=== PATIENT | male | born 1935 | race Caucasian/White ===

== ENCOUNTER → 2018-03-10 09:33 | Outpatient (CLI) | payer MEDICARE, OTHER, SELFPAY ==
--- NOTE | 2018-03-10 09:33 | XR_ITS ---
XR foot wt bearing RT 3V HISTORY: Pain, open wound ITS.REASON: wound ORDERING PHYSICIAN: Chepe Vanegas MD PATIENT AGE: 82 years COMPARISON: None FINDINGS: No fracture or dislocation. No lytic or blastic change. There is normal mineralization.. The joint spaces are well-preserved. No significant degenerative/arthritic changes. No erosive changes evident. IMPRESSION: Negative, no acute finding
--- NOTE | 2018-03-10 09:33 | XR_ITS ---
XR foot wt bearing LT 3V HISTORY: Pain, open wound ITS.REASON: wound care ORDERING PHYSICIAN: Chepe Vanegas MD PATIENT AGE: 82 years COMPARISON: None FINDINGS: No fracture or dislocation. No lytic or blastic change. There is normal mineralization.. The joint spaces are well-preserved. No significant degenerative/arthritic changes. No erosive changes evident. IMPRESSION: Negative, no acute finding
--- NOTE | 2018-03-10 09:36 | US_ITS ---
US Arterial Ankle Brachial Ind History: Ulceration of the right foot, peripheral vascular disease, rest pain with claudication ORDERING PHYSICIAN: Chepe Vanegas MD PATIENT AGE: 82 years TECHNIQUE: Segmental pressures obtained of both right and left leg. These are compared to brachial blood pressure to yield index at each level sampled including summary EMILY. The data sheets from the procedure are available in PACS FINDINGS Rest study only performed today No prior studies available for comparison. Blood pressures reported are in millimeters mercury. RIGHT LEG EMILY = 1.1. RIGHT LEG TBI=.8 Brachial BP: 138 Thigh BP: 144 Calf BP: 166 Ankle PT: 145 Ankle DP : 163 Digit =108 LEFT LEG EMILY = 1.2 LEFT LEG TBI= .8 Brachial BPD: 135 Thigh BP: 148 Calf BP: 154 Ankle PT:165 Ankle DP: 150 Digit = 114 Pulses and waveforms: Normal IMPRESSION: The ABIs and TBIs as reported above are within normal limits. Waveforms and pulses are also unremarkable.
[2018-03-10 10:35] LABS: Basophils % 0.6 % (0.1-2.0); Eosinophils # 0.1 K/mm3 (0.0-0.4); Eosinophils % 1.5 % (0.1-12.0); Hematocrit 45.2 % (42.0-52.0); Lymphocytes # 1.6 K/mm3 (0.7-4.5); Lymphocytes % 21.5 K/mm3 (10-50); Mean Corpuscular HGB Conc 30.9 g/dL (31.8-35.4); Mean Corpuscular Hemoglobin 28.1 pg (27.0-31.2); Mean Corpuscular Volume 90.9 fl (80-94); Mean Platelet Volume 6.9 fl (7.4-10.4); Monocytes # 0.4 K/mm3 (0.1-1.0); Monocytes % 5.7 % (1.7-9.3); Neutrophils # 5.4 K/mm3 (1.8-7.8); Neutrophils % 70.8 % (37.0-80.0); Platelet Count 189 K/mm3 (142-424); Red Blood Count 4.97 M/mm3 (4.60-6.20); Red Cell Distribution Width 13.7 % (11.5-17.5); White Blood Count 7.6 K/mm3 (4.8-10.8)
[2018-03-10 10:39] LABS: Alanine Aminotransferase 19 U/L (12-78); Albumin Level 3.8 gm/dL (3.4-5.0); Albumin/Globulin Ratio 1.2 (1.1-1.8); Alkaline Phosphatase 71 U/L (46-116); Anion Gap 13.2 mEq/L (5-15); Aspartate Amino Transferase 25 U/L (15-37); Bilirubin,Total 0.6 mg/dL (0.2-1.0); Blood Urea Nitrogen 15 mg/dL (7-18); Calcium 8.6 mg/dL (8.5-10.1); Carbon Dioxide 28 mmol/L (21.0-32.0); Chloride 107 mmol/L (98-107); Estimated Glomerular Filt Rate 81 ml/min (>60); GFR (African American) 98 ML/MIN (>60); Globulin 3.1 gm/dl (1.3-3.2); Glucose 102 mg/dL (74-106); Potassium 4.2 mmoL/L (3.5-5.1); Sodium 144 mmol/L (136-145); Total Protein,Serum 6.9 gm/dL (6.4-8.2)
[2018-03-10 10:51] LABS: C-Reactive Protein < 0.2 mg/L (0.0-0.9)
[2018-03-10 12:02] LABS: Erythrocyte Sedimentation Rate 10 mm/hr (0-20)
== END ==
PROVIDERS: Podiatrist; Family Provider Family Medicine; PCP Family Medicine; Visit Provider Internal Medicine
DX: L97.519 Non-pressure chronic ulcer of other part of right foot with unspecified severity; Z51.89 Encounter for other specified aftercare; I73.9 Peripheral vascular disease, unspecified
CPT/HCPCS: 36415; 73630; 80053; 85025; 85651; 86140; 93922

== ENCOUNTER → 2018-07-04 09:37 | Outpatient (CLI) | payer MEDICARE, OTHER, SELFPAY ==
[2018-07-04 10:09] LABS: INR 3.59 (0.9-1.1); Prothrombin Time 35.6 seconds (9.4-11.8)
--- NOTE | 2018-07-04 10:47 | XR_ITS ---
XR hip LT 2-3V w/pelvis HISTORY: ITS.REASON: S/P FALL, LT HIP PAIN ORDERING PHYSICIAN: Terry Pereyra PATIENT AGE: 83 years COMPARISON: None FINDINGS: No fracture or dislocation is evident. There are osteoarthritic changes of both hips on the AP view of the pelvis. Sutures are present along the mid and lower pelvic region. Metallic densities noted over the right ilium. IMPRESSION: No acute fracture. Osteoarthritis of the hips
== END ==
PROVIDERS: PCP Family Medicine; Visit Provider Family Medicine
DX: Z79.01 Long term (current) use of anticoagulants (principal); M25.552 Pain in left hip
CPT/HCPCS: 36415; 73502; 85610

== ENCOUNTER → 2018-10-25 09:57 | Outpatient (CLI) | payer MEDICARE, OTHER, SELFPAY ==
--- NOTE | 2018-10-25 10:04 | CA_ITS ---
PROCEDURE: 2-D M-mode and color Doppler study INDICATIONS FOR THE TEST: Chest pain COPD Heart Murmur Tobacco Smoking Palpitations Fatigue Syncope Edema Hypertension+Diabetes Mellitus Rheumatic Fever SOB BROCK+Obesity Hyperlipidemia+ Family History HD Additional History CAD, Aflutter, mech AV, cardiac stents PATIENT INFORMATION HEIGHT: 65 WEIGHT: 164 GENDER: Male B/P: 122/68 2-D/M-MODE INTERPRETATION: 2-D MEASUREMENTS OBSERVED VALUES IN CMS Right Ventricular Dimension (RVDd) 2.7 Interventricular Septum (Thickness)(IVsd) 1.1 Left Ventricular Internal Dimensions(LVIDd) 4.1 Left Ventricular Posterior Wall (Thickness)(LVPWd) 0.9 Aortic Root 3.0 Aortic Cusp Separation 1.3 Left Atrial Dimensions (LAD) 3.9 2D 1. Left atrium is moderately enlarged, left ventricle is normal size, mild concentric left ventricular hypertrophy, visually estimated ejection fraction 50% with no regional wall motion abnormality. 2. The right atrium and right ventricle are mildly enlarged with normal contractility. 3. There is mechanical prosthetic valve noted in the aortic position, the valve is well seated. 4. There is mechanical prosthetic valve noted in the mitral position valve is well seated. 5. The tricuspid valve is grossly normal. 6. The pulmonic valve is poorly visualized. 7. No significant pericardial effusion noted. DOPPLER INTERROGATION: 1. The aortic outflow velocities within normal range for the prosthetic valve, there is no significant aortic inflow obstruction or aortic insufficiency. 2. The maximum mitral inflow velocity recorded study 1.8 m/s across the prosthetic valve, the valve area is 2.6 cm by by pressure half time there is no mitral regurgitation. 3. There is mild tricuspid regurgitation noted, tricuspid regurgitation jet velocity is inadequate for calculation of the right ventricular systolic pressure. CONCLUSION: 1. Moderately enlarged left atrium, normal left ventricular size, mild concentric left ventricular hypertrophy, visually estimated ejection fraction 50% with no regional wall motion abnormality, diastolic parameters are inconclusive. 2. Normal functioning mechanical prosthetic valve in aortic position. 3. Normal function, clinical prosthetic valve in the mitral position. 4. No significant pericardial effusion noted.
== END ==
PROVIDERS: PCP Family Medicine; Visit Provider Urology
DX: E78.5 Hyperlipidemia, unspecified (principal); I11.9 Hypertensive heart disease without heart failure; I25.10 Atherosclerotic heart disease of native coronary artery without angina pectoris; R60.0 Localized edema; Z95.2 Presence of prosthetic heart valve
CPT/HCPCS: 93306

== ENCOUNTER → 2019-11-14 11:03 | Outpatient (CLI) | payer MEDICARE, OTHER, SELFPAY ==
--- NOTE | 2019-11-14 11:16 | XR_ITS ---
PROCEDURE: XR LUMBAR SPINE MIN 4V CLINICAL INDICATION: LOW BACK PAIN COMPARISON: No exams were available for comparison FINDINGS: There is no acute fracture or dislocation. There is degenerative disc disease L2-3 L3-4 L4-5 and greatest extent L5-S1. Short pedicles noted at L4 and L5 with likely some degree of central canal stenosis. There is osteoarthritis at both hips. Atherosclerotic calcifications are seen in the abdominal aorta. IMPRESSION: Multilevel degenerative disc disease. Dictated by: Frederick Pearson 11/14/2019 14:12 Electronically signed by Frederick Pearson in [place] 11/14/2019 14:12
== END ==
PROVIDERS: PCP Family Medicine; Visit Provider Family Medicine
DX: M54.5 Low back pain (principal)
CPT/HCPCS: 72110

== ENCOUNTER → 2020-03-12 14:18 | Outpatient (CLI) | payer MEDICARE, OTHER, SELFPAY ==
[2020-03-12 15:30] LABS: INR 3.87 (0.9-1.1); Prothrombin Time 36.5 seconds (9.4-11.8)
== END ==
PROVIDERS: Visit Provider Family Medicine
DX: Z51.81 Encounter for therapeutic drug level monitoring (principal); Z79.01 Long term (current) use of anticoagulants; Z95.2 Presence of prosthetic heart valve
CPT/HCPCS: 36415; 85610

== ENCOUNTER → 2020-04-11 11:03 | Outpatient (CLI) | payer MEDICARE, OTHER, SELFPAY ==
[2020-04-11 11:32] LABS: INR 2.72 (0.9-1.1); Prothrombin Time 26.3 seconds (9.4-11.8)
== END ==
PROVIDERS: Visit Provider Family Medicine
DX: Z95.2 Presence of prosthetic heart valve (principal); Z51.81 Encounter for therapeutic drug level monitoring; Z79.01 Long term (current) use of anticoagulants
CPT/HCPCS: 36415; 85610

== ENCOUNTER → 2020-04-22 08:06 | Outpatient (CLI) | payer MEDICARE, OTHER, SELFPAY ==
--- NOTE | 2020-04-22 08:08 | CA_ITS ---
APPROVED REPORT EXAM: Comprehensive 2D, Doppler, and color-flow Echocardiogram [employer] Rep[employer]r: Erica Dalton CRT Ht: 5 ft 5 in Wt: 166lbs BSA: 1.83 BP: 128/78 mmHg Indications: Prosthetic Valve, mech AV, mech MV Congestive Heart Failure, Atrial Fibrillation, CAD, GERD 2D Dimensions LVOT 1.76 cm (M/F) 1.5-2.5 M-Mode Dimensions RVDd 3.65 cm (0.9-2.6) LVDd 5.06 cm (3.5-5.7) LVDs 3.65 cm (3.5-5.7) IVSd 1.27 cm (0.6-1.1) PWd 0.94 cm (0.6-1.1) EF (Teich) 53.70% FS 27.90% EDV (Teich) 121.60 mL ESV (Teich) 56.30 mL LV Diastology E/A Ratio 4.91 Aortic Valve LVOT Max 187.00 (70-110 cm/s) LVOT VTI 39.75 cm Mitral Valve MV A Velocity 30.00 (40-130 cm/s) MV Mean Gr. 3.70 (<2mmHg) MV PHT 80.00 ms Left Ventricle Left atrium is mildly enlarged, left ventricle is normal size, there is mild concentric left ventricular hypertrophy, visually estimated ejection fraction 55% with no regional wall motion abnormality, diastolic parameters are inconclusive. Right Ventricle Right atrium and right ventricular mildly enlarged with normal contractility. Aortic Valve There is mechanical prosthetic valve noted in the aortic position, the valve is well-seated, the gradient across the prosthetic valve is within acceptable range, there is no aortic insufficiency. Mitral Valve There is mechanical prosthetic valve noted in the mitral position, the valve is well-seated, the mean gradient across valve is 3.5 mmHg, there is no significant mitral inflow obstruction or mitral regurgitation. Tricuspid Valve Tricuspid valve leaflets are minimally thickened, there is mild tricuspid regurgitation. Pulmonic Valve Pulmonic valve is poorly visualized. Great Vessels Aortic root is normal size. Pericardium No significant pericardial effusion noted. Conclusion 1. Biatrial enlargement, normal left ventricular size, mild concentric left ventricular hypertrophy, visually estimated ejection fraction 55% with no regional wall motion abnormality, diastolic parameters are within normal range. 2. Normal functioning mechanical prosthetic valve in the aortic position. 3. Normal functioning mechanical prosthetic valve in the mitral position. 4. Mild tricuspid regurgitation. 5. No significant pericardial effusion noted. Electronically signed by : Otoniel Orozco, 04/22/2020 19:52:25
== END ==
PROVIDERS: PCP Family Medicine; Visit Provider Internal Medicine
DX: Z95.2 Presence of prosthetic heart valve (principal); I25.10 Atherosclerotic heart disease of native coronary artery without angina pectoris
CPT/HCPCS: 93306

== ENCOUNTER → 2020-05-13 11:11 | Outpatient (CLI) | payer MEDICARE, OTHER, SELFPAY ==
[2020-05-13 11:39] LABS: Prothrombin Time 29.7 seconds (9.4-11.8)
== END ==
PROVIDERS: Visit Provider Family Medicine
DX: Z95.2 Presence of prosthetic heart valve (principal)
CPT/HCPCS: 36415; 85610

== ENCOUNTER → 2020-06-10 12:14 | Outpatient (CLI) | payer MEDICARE, OTHER, SELFPAY ==
[2020-06-10 13:39] LABS: Chloride 102 mmol/L (98-107); Potassium 4.9 mmoL/L (3.5-5.1); Sodium 140 mmol/L (136-145)
[2020-06-10 13:42] LABS: Anion Gap 12.9 mEq/L (5-15); Blood Urea Nitrogen 19 mg/dl (9-20); Carbon Dioxide 30 mmol/L (22.0-30.0); Estimated Glomerular Filt Rate 80 ml/min (>60); GFR (African American) 97 ML/MIN (>60)
[2020-06-10 13:43] LABS: Calcium 9.4 mg/dl (8.4-10.2); Glucose 97 mg/dl (74-100)
[2020-06-10 17:00] LABS: INR 2.72 (0.9-1.1); Prothrombin Time 26.9 seconds (9.4-11.8)
== END ==
PROVIDERS: Visit Provider Family Medicine
DX: E03.9 Hypothyroidism, unspecified (principal); Z95.2 Presence of prosthetic heart valve
CPT/HCPCS: 36415; 80048; 84443; 85610

== ENCOUNTER → 2020-08-08 12:38 | Outpatient (CLI) | payer MEDICARE, OTHER, SELFPAY ==
[2020-08-08 15:13] LABS: INR 3.77 (0.9-1.1); Prothrombin Time 37.1 seconds (9.4-11.8)
== END ==
PROVIDERS: Visit Provider Family Medicine
DX: Z95.2 Presence of prosthetic heart valve (principal); Z51.81 Encounter for therapeutic drug level monitoring; Z79.01 Long term (current) use of anticoagulants
CPT/HCPCS: 36415; 85610

== ENCOUNTER → 2020-10-08 12:53 | Outpatient (CLI) | payer MEDICARE, OTHER, SELFPAY ==
[2020-10-08 14:20] LABS: Chloride 105 mmol/L (98-107); Potassium 4.2 mmoL/L (3.5-5.1); Sodium 141 mmol/L (136-145)
[2020-10-08 14:23] LABS: Alanine Aminotransferase 16 U/L (12-78); Albumin Level 4.6 g/dl (3.5-5.0); Albumin/Globulin Ratio 1.4 (1.1-1.8); Alkaline Phosphatase 66 U/L (38-126); Anion Gap 12.2 mEq/L (5-15); Aspartate Amino Transferase 29 U/L (17-59); Bilirubin,Total 0.9 mg/dl (0.2-1.3); Blood Urea Nitrogen 16 mg/dl (9-20); Calcium 9.3 mg/dl (8.4-10.2); Carbon Dioxide 28 mmol/L (22.0-30.0); Estimated Glomerular Filt Rate 71 ml/min (>60); GFR (African American) 86 ML/MIN (>60); Globulin 3.2 g/dL (1.3-3.2); Glucose 104 mg/dl (74-100); Total Protein,Serum 7.8 g/dl (6.3-8.2)
[2020-10-08 14:54] LABS: Thyroid Stimulating Hormone 2.92 uIU/mL (0.465-4.68)
[2020-10-08 15:57] LABS: INR 5.47 (0.9-1.1)
== END ==
PROVIDERS: Visit Provider Family Medicine
DX: L60.8 Other nail disorders (principal); Z95.2 Presence of prosthetic heart valve; Z79.01 Long term (current) use of anticoagulants; Z51.81 Encounter for therapeutic drug level monitoring
CPT/HCPCS: 36415; 80053; 84443; 85610

== ENCOUNTER → 2020-10-11 09:31 | Outpatient (CLI) | payer MEDICARE, OTHER, SELFPAY ==
[2020-10-11 10:31] LABS: INR 2.46 (0.9-1.1); Prothrombin Time 25.2 seconds (9.4-11.8)
== END ==
PROVIDERS: Visit Provider Family Medicine
DX: Z95.2 Presence of prosthetic heart valve (principal); Z51.81 Encounter for therapeutic drug level monitoring; Z79.01 Long term (current) use of anticoagulants
CPT/HCPCS: 36415; 85610

== ENCOUNTER → 2020-12-05 10:59 | Outpatient (CLI) | payer MEDICARE, OTHER, SELFPAY ==
[2020-12-05 11:32] LABS: Basophils # 0.1 K/mm3 (0-0.2); Basophils % 0.5 % (0.1-2.0); Eosinophils # 0.2 K/mm3 (0.0-0.4); Eosinophils % 1.8 % (0.1-12.0); Hematocrit 47.8 % (42.0-52.0); Lymphocytes % 22.3 % (10-50); Mean Corpuscular HGB Conc 31.4 g/dL (31.8-35.4); Mean Corpuscular Volume 92.1 fl (80-94); Mean Platelet Volume 7.1 fl (7.4-10.4); Monocytes # 0.5 K/mm3 (0.1-1.0); Neutrophils # 6.3 K/mm3 (1.8-7.8); Neutrophils % 70.4 % (37.0-80.0); Platelet Count 207 K/mm3 (142-424); Red Blood Count 5.19 M/mm3 (4.60-6.20); Red Cell Distribution Width 13.9 % (11.5-17.5)
[2020-12-05 11:52] LABS: Chloride 106 mmol/L (98-107); Potassium 4.5 mmoL/L (3.5-5.1); Sodium 140 mmol/L (136-145)
[2020-12-05 11:54] LABS: Blood Urea Nitrogen 15 mg/dl (9-20); Estimated Glomerular Filt Rate 80 ml/min (>60); GFR (African American) 97 ML/MIN (>60)
[2020-12-05 11:55] LABS: Alanine Aminotransferase 18 U/L (12-78); Albumin Level 4.5 g/dl (3.5-5.0); Albumin/Globulin Ratio 1.4 (1.1-1.8); Alkaline Phosphatase 75 U/L (38-126); Anion Gap 11.5 mEq/L (5-15); Aspartate Amino Transferase 37 U/L (17-59); Bilirubin,Total 0.9 mg/dl (0.2-1.3); Calcium 9.3 mg/dl (8.4-10.2); Carbon Dioxide 27 mmol/L (22.0-30.0); Chol/HDL Ratio 4.1 (1-3.5); Cholesterol 126 mg/dl (140-200); Globulin 3.3 g/dL (1.3-3.2); Glucose 105 mg/dl (74-100); HDL Cholesterol 31 mg/dl (40-60); Total Protein,Serum 7.8 g/dl (6.3-8.2); Triglycerides 120 mg/dl (30-150); VLDL Cholesterol 24 mg/dL (0-40)
[2020-12-05 12:26] LABS: INR 2.27 (0.9-1.1); Prothrombin Time 25.2 seconds (9.4-11.8)
[2020-12-05 12:27] LABS: Thyroid Stimulating Hormone 1.44 uIU/mL (0.465-4.68)
== END ==
PROVIDERS: Visit Provider Family Medicine
DX: R06.00 Dyspnea, unspecified (principal); E78.5 Hyperlipidemia, unspecified; K29.70 Gastritis, unspecified, without bleeding; I25.10 Atherosclerotic heart disease of native coronary artery without angina pectoris
CPT/HCPCS: 36415; 80053; 80061; 84443; 85025; 85610

== ENCOUNTER → 2021-01-30 11:33 | Outpatient (CLI) | payer MEDICARE, OTHER, SELFPAY ==
[2021-01-30 12:46] LABS: INR 2.89 (0.9-1.1); Prothrombin Time 31.5 seconds (10.1-12.5)
[2021-01-30 13:34] LABS: Thyroid Stimulating Hormone 2.61 uIU/mL (0.465-4.68)
== END ==
PROVIDERS: Visit Provider Family Medicine
DX: K29.70 Gastritis, unspecified, without bleeding (principal); F41.9 Anxiety disorder, unspecified; Z51.81 Encounter for therapeutic drug level monitoring; Z79.01 Long term (current) use of anticoagulants
CPT/HCPCS: 36415; 84443; 85610

== ENCOUNTER → 2021-03-27 15:52 | Outpatient (CLI) | payer MEDICARE, OTHER, SELFPAY ==
[2021-03-27 17:17] LABS: Prothrombin Time 33.7 seconds (10.1-12.5)
[2021-03-27 17:37] LABS: INR 3.11 (0.9-1.1)
== END ==
PROVIDERS: Visit Provider Family Medicine
DX: K29.70 Gastritis, unspecified, without bleeding (principal)
CPT/HCPCS: 36415; 85610

== ENCOUNTER → 2021-06-26 12:19 | Outpatient (CLI) | payer MEDICARE, OTHER, SELFPAY ==
[2021-06-26 12:38] LABS: INR 2.96 (0.9-1.1); Prothrombin Time 30.1 seconds (9.2-12.1)
== END ==
PROVIDERS: Visit Provider Family Medicine
DX: I25.10 Atherosclerotic heart disease of native coronary artery without angina pectoris (principal); Z51.81 Encounter for therapeutic drug level monitoring; Z79.01 Long term (current) use of anticoagulants
CPT/HCPCS: 85610

== ENCOUNTER 2021-07-18 10:11 | Emergency (ER) | payer MEDICARE, OTHER, SELFPAY ==
[2021-07-18 11:38] VITALS: BP 165/71; PULSE 60; RESP 18; TEMP 36.7; O2SAT 97; BMI 26.2
--- NOTE | 2021-07-18 11:53 | HMH.EDUTC ---
[facility] [place] Disposition Clinical Impression: Perforation of left tympanic membrane, Bleeding from left ear Disposition: Home, Self-Care Condition on Discharge: Good Instructions: DI for Tympanic Membrane Perforation-Adult Prescriptions: Amoxicillin [Amoxicillin 875MG Tab] 875 mg PO Q12H #20 tab Transmission Status: Pending to [facility] Ciprofloxacin HCl/Dexameth [Cipro 0.3%-Dex 0.1% Otic Susp 7.5mL] 5 drops OT BID 7 Days #1 ml Transmission Status: Pending to [facility] Referrals: Dagoberto Pereyra MD [Primary Care Provider] - Time of Disposition: 12:02 Medical Decision Making - [place] Inquiry Pt receiving controlled substance: No Vital Signs: 07/18/21 11:38 Temperature 98.0 F Temperature Source Oral Pulse Rate [Right Brachial] 60 Respiratory Rate 18 Blood Pressure [Right Arm] 165/71 H Blood Pressure Mean [Right Arm] 102 Blood Pressure Source [Right Arm] Automatic Cuff Blood Pressure Position [Right Arm] Sitting 02 Sat by Pulse Oximetry 97 Oxygen Delivery Method Room Air [facility] [place] HPI - General Stated complaint: left ear bleed Time Seen by Provider: 07/18/21 11:53 Mode of Arrival: Ambulatory Source of Information: Patient Limitations: reading and writing Description of Symptoms (Recalled from Triage Doc. by RN): blood in both ears HEENT Symptoms (Recalled from RN notes): Yes Resp Symptoms (Recalled from RN notes): No Skin Symptoms (Recalled from RN notes): No MS Symptoms (Recalled from RN notes): No Functional Status (Recalled from RN notes): yes - History of Present Illness Provider Complaint: Patient states that he noticed bleeding from his left ear this morning. No pain or fever. Has had hole in his ear before. He is on blood thinners. Onset (ago): day(s) (1) Relieving factors: none Exacerbating factors: none Associated symptoms: denies other symptoms Treatments prior to arrival: none - Related Data Home Medications Medication Instructions Recorded Confirmed aspirin 81 mg tablet,delayed 81 mg PO DAILY tab 03/07/18 06/26/21 release furosemide 40 mg tablet 40 mg PO DAILY tab 03/07/18 03/27/21 levothyroxine 137 mcg tablet 137 mcg PO tab 06/26/21 06/26/21 Previous Rx's Medication Instructions Recorded ketoconazole 2 % topical cream 1 applic TOPICAL DAILY #30 g 12/05/20 warfarin 4 mg tablet 4 mg PO .every tu/thur #30 tab 01/20/21 clonazepam 1 mg tablet 1 mg PO BID #60 tab 01/30/21 tramadol 50 mg tablet 50 mg PO DAILY PRN #90 tab 01/30/21 warfarin 3 mg tablet See Rx Instructions .ROUTE 05/20/21 .COMPLEX #30 tab metoprolol tartrate 50 mg tablet 50 mg PO BID #60 tab 06/26/21 omeprazole 20 mg capsule,delayed 20 mg PO ONCE #90 cap 06/26/21 release potassium chloride 10 mEq 10 meq PO DAILY #90 tab 06/26/21 tablet,extended release simvastatin 40 mg tablet 40 mg PO QPM #90 tab 06/26/21 Amoxicillin [Amoxicillin 875MG 875 mg PO Q12H #20 tab 07/18/21 Tab] Ciprofloxacin HCl/Dexameth [Cipro 5 drops OT BID 7 Days #1 ml 07/18/21 0.3%-Dex 0.1% Otic Susp 7.5mL] Allergies Allergy/AdvReac Type Severity Reaction Status Date / Time codeine [CODEINE] Allergy Unknown Verified 07/18/21 11:38 - Worker's Comp Is this a Worker's Comp case?: No Is this an [facility] Worker's Comp?: No Is this a [place] Worker's Comp?: No [facility] History - Hepatitis A Screen Drug use history?: No High risk sexual behaviors?: No History of sexually transmitted infection?: No Currently employed?: No Childcare worker?: No Do you have indoor plumbing?: Yes Do you have electricity?: Yes Attestation statement:: This patient has been screened for Hepatitis A risk factors. Medical History: Reports:: Anxiety, Atrial Fibrillation, Congestive Heart Failure, Coronary Artery Disease, Gastroesophageal Reflux Disease(GERD), Hiatal Hernia, Hyperlipidemia, Hypertension Other Medical History: Reports: Arthritis, Hypothyroidism Other Surgeries: Yes: Angioplasty, Coronary Stent, Hernia Repair, Other Valve Replac
[2021-07-18 12:14] VITALS: BP 165/71; PULSE 60; RESP 16; TEMP 36.7
== END 2021-07-18 12:14 | disposition home or self-care (01) ==
PROVIDERS: Emergency Provider Physician Assistant; PCP Family Medicine
DX: H72.92 Unspecified perforation of tympanic membrane, left ear (principal); I48.0 Paroxysmal atrial fibrillation; E03.9 Hypothyroidism, unspecified; I10 Essential (primary) hypertension; F41.9 Anxiety disorder, unspecified; I50.9 Heart failure, unspecified; K21.9 Gastro-esophageal reflux disease without esophagitis; Z79.899 Other long term (current) drug therapy
CPT/HCPCS: G0463; 99202

== ENCOUNTER → 2021-09-23 12:27 | Outpatient (CLI) | payer MEDICARE, OTHER, SELFPAY ==
[2021-09-23 13:22] LABS: Prothrombin Time 34.1 seconds (10.1-12.5)
[2021-09-23 13:44] LABS: Basophils # 0.1 K/mm3 (0-0.2); Basophils % 1.1 % (0.1-2.0); Eosinophils # 0.1 K/mm3 (0.0-0.4); Eosinophils % 1.3 % (0.1-12.0); Hematocrit 48.1 % (42.0-52.0); Hemoglobin 15.3 g/dL (14.1-18.0); Lymphocytes # 1.9 K/mm3 (0.7-4.5); Lymphocytes % 24.4 % (10-50); Mean Corpuscular HGB Conc 31.8 g/dL (31.8-35.4); Mean Corpuscular Hemoglobin 30.1 pg (27.0-31.2); Mean Corpuscular Volume 94.6 fl (80-94); Mean Platelet Volume 7.8 fl (7.4-10.4); Monocytes # 0.5 K/mm3 (0.1-1.0); Monocytes % 6.9 % (1.7-9.3); Neutrophils # 5.1 K/mm3 (1.8-7.8); Neutrophils % 66.4 % (37.0-80.0); Platelet Count 208 K/mm3 (142-424); Red Blood Count 5.08 M/mm3 (4.60-6.20); Red Cell Distribution Width 13.8 % (11.5-17.5); White Blood Count 7.6 K/mm3 (4.8-10.8)
[2021-09-23 14:36] LABS: Alanine Aminotransferase 15 U/L (12-78); Albumin Level 4.4 g/dl (3.5-5.0); Albumin/Globulin Ratio 1.6 (1.1-1.8); Alkaline Phosphatase 58 U/L (38-126); Anion Gap 12.6 mEq/L (5-15); Aspartate Amino Transferase 36 U/L (17-59); Bilirubin,Total 0.7 mg/dl (0.2-1.3); Blood Urea Nitrogen 18 mg/dl (9-20); Calcium 8.9 mg/dl (8.4-10.2); Carbon Dioxide 28 mmol/L (22.0-30.0); Chloride 102 mmol/L (98-107); Estimated Glomerular Filt Rate 91 ml/min (>60); GFR (African American) 111 ML/MIN (>60); Globulin 2.7 g/dL (1.3-3.2); Glucose 90 mg/dl (74-100); Potassium 4.6 mmoL/L (3.5-5.1); Sodium 138 mmol/L (136-145); Total Protein,Serum 7.1 g/dl (6.3-8.2)
== END ==
PROVIDERS: Visit Provider Family Medicine
DX: E78.5 Hyperlipidemia, unspecified (principal); K29.70 Gastritis, unspecified, without bleeding
CPT/HCPCS: 36415; 80053; 85025; 85610

== ENCOUNTER → 2021-10-06 12:31 | Outpatient (CLI) | payer MEDICARE, OTHER, SELFPAY ==
--- NOTE | 2021-10-06 12:34 | CA_ITS ---
APPROVED REPORT EXAM: Comprehensive 2D, Doppler, and color-flow Echocardiogram Counter Waitress/Waiter: SARAH Hernandez, RVS Ht: 5 ft 5 in Wt: 158lbs BSA: 1.79 BP: 133/61 mmHg Indications: MVR/AVR, Afib, CAD-stents, CHF, BROCK, HTN, HLD 2D Dimensions LVDd 4.15 cm LVEF (Visual) 67.50 % LVDs 2.61 cm LA Volume 115.10 mL LVOT 2.00 cm (M/F) 1.5-2.5 LA Volume Index 64.527855 mL/m2 (M/F) 16-34 M-Mode Dimensions RVDd 3.41 cm (0.9-2.6) LA Diam 5.26 cm (1.9-4.0) LVDd 4.70 cm (3.5-5.7) Ao Diam 3.43 cm (2.0-3.7) LVDs 3.56 cm (3.5-5.7) IVSd 1.18 cm (0.6-1.1) PWd 0.95 cm (0.6-1.1) EF (Teich) 48.20% FS 24.30% EDV (Teich) 102.40 mL TAPSE 2.11 (<1.7) ESV (Teich) 53.00 mL LV Diastology E Decel Time 233.00 (160-240 msec) E/A Ratio 4.24 MED E' 8.00 (< 7 cm/sec) MED A' 3.30 cm/s E'/MED E' Ratio 22.75 (>14) LAT E' 9.30 (<10 cm/sec) LAT A' 3.80 cm/s E/LAT E' Ratio 19.57 (>14) Aortic Valve LVOT Max 78.00 (70-110 cm/s) LVOT VTI 18.95 cm AoV Peak Jose. 276.00 (50-130 cm/s) AO Peak GR. 30.60 mmHg AO Mean GR. 14.60 (<5 mmHg) AO VTI 60.49 (18-25 cm) SANDY (VTI) 0.98 (2.5-4.5 cm2) Mitral Valve MV A Velocity 43.00 (40-130 cm/s) E/A Ratio 4.24 MV Decel. Time 233.00 (160-240 ms) MV Mean Gr. 5.60 (<2mmHg) Pulmonary Valve PV Peak Velocity 78.00 (50-150 cm/s) Tricuspid Valve TR P. Velocity 329.00 cm/s RAP Estimate 10.00 mmHg RVSP 53.30 mmHg Left Ventricle Left atrium is moderately enlarged, left ventricular normal size, mild concentric left ventricular hypertrophy, visually estimated ejection fraction 55% with no regional wall motion abnormality. Diastolic parameters are inconclusive. Right Ventricle Right atrium and right ventricle are mildly enlarged with normal contractility. Aortic Valve There is a mechanical prosthetic valve noted in the aortic position, mean gradient across valve is 14 mmHg. Which is within physiological range for this type of valve. Valve area is not accurately calculated. There is no significant aortic insufficiency. Mitral Valve Mechanical prosthetic valve in the mitral position, the valve is well-seated, the mean gradient across valve is 6 mmHg, valve area was not calculated. There is no significant mitral regurgitation seen. Tricuspid Valve Tricuspid valve is grossly normal, there is mild tricuspid regurgitation, tricuspid regurgitation jet was inadequate for calculation of the right ventricular systolic pressure. Pulmonic Valve Pulmonic valve is poorly visualized. Great Vessels Aortic root is normal size. Inferior vena cava is poorly visualized. Pericardium No significant pericardial effusion noted. Conclusion 1. Biatrial enlargement, normal left ventricular size, visually estimated ejection fraction 55% with no regional wall motion abnormality. Diastolic parameters are inconclusive. 2. Mechanical prosthetic valve in the aortic and mitral position likely normal functioning prosthesis, the valve area and the pressure half-time is not acquired in this study. 3. If clinically indicated repeat study with better Doppler technique is recommended to assess the aortic and the mitral valve. 4. No significant pericardial effusion noted. Electronically signed by : Otoniel Orozco MD 10/06/2021 13:52:20
== END ==
PROVIDERS: PCP Family Medicine; Visit Provider Nurse Practitioner Family
DX: E78.5 Hyperlipidemia, unspecified (principal); I11.9 Hypertensive heart disease without heart failure; I25.10 Atherosclerotic heart disease of native coronary artery without angina pectoris; I48.92 Unspecified atrial flutter; R25.1 Tremor, unspecified; R60.0 Localized edema; Z79.01 Long term (current) use of anticoagulants; Z95.2 Presence of prosthetic heart valve; Z95.5 Presence of coronary angioplasty implant and graft
CPT/HCPCS: 93306

== ENCOUNTER → 2021-12-02 11:50 | Outpatient (CLI) | payer MEDICARE, OTHER, SELFPAY ==
[2021-12-02 12:40] LABS: Prothrombin Time 29.3 seconds (10.1-12.5)
== END ==
PROVIDERS: Visit Provider Family Medicine
DX: K29.70 Gastritis, unspecified, without bleeding (principal); Z51.81 Encounter for therapeutic drug level monitoring; Z79.01 Long term (current) use of anticoagulants
CPT/HCPCS: 36415; 85610

== ENCOUNTER → 2022-02-19 10:57 | Outpatient (CLI) | payer MEDICARE, OTHER, SELFPAY ==
[2022-02-19 11:28] LABS: INR 3.01 (0.9-1.1); Prothrombin Time 31.3 seconds (10.1-12.5)
== END ==
PROVIDERS: Visit Provider Family Medicine
DX: K29.70 Gastritis, unspecified, without bleeding (principal)
CPT/HCPCS: 36415; 85610

== ENCOUNTER → 2022-03-26 12:25 | Outpatient (CLI) | payer MEDICARE, OTHER, SELFPAY ==
[2022-03-26 13:16] LABS: INR 3.39 (0.9-1.1)
== END ==
PROVIDERS: PCP Family Medicine; Visit Provider Family Medicine
DX: K29.70 Gastritis, unspecified, without bleeding (principal); Z51.81 Encounter for therapeutic drug level monitoring; Z79.01 Long term (current) use of anticoagulants
CPT/HCPCS: 36415; 85610

== ENCOUNTER → 2022-04-15 09:08 | Outpatient (CLI) | payer MEDICARE, OTHER, SELFPAY ==
[2022-04-15 09:49] LABS: INR 2.98 (0.9-1.1); Prothrombin Time 31.1 seconds (10.1-12.5)
== END ==
PROVIDERS: PCP Family Medicine; Visit Provider Family Medicine
DX: K29.70 Gastritis, unspecified, without bleeding (principal); Z51.81 Encounter for therapeutic drug level monitoring; Z79.01 Long term (current) use of anticoagulants
CPT/HCPCS: 36415; 85610

== ENCOUNTER → 2022-05-25 09:47 | Outpatient (CLI) | payer MEDICARE, OTHER, SELFPAY ==
[2022-05-25 10:51] LABS: INR 4.78 (0.9-1.1)
[2022-05-25 15:59] LABS: Prothrombin Time 48.1 seconds (10.1-12.5)
== END ==
PROVIDERS: PCP Family Medicine; Visit Provider Family Medicine
DX: K29.70 Gastritis, unspecified, without bleeding (principal); R79.1 Abnormal coagulation profile
CPT/HCPCS: 36415; 85610

== ENCOUNTER → 2022-07-24 10:38 | Outpatient (CLI) | payer MEDICARE, OTHER, SELFPAY ==
[2022-07-24 11:17] LABS: INR 3.26 (0.9-1.1); Prothrombin Time 32.9 seconds (10.1-12.5)
== END ==
PROVIDERS: PCP Family Medicine; Visit Provider Family Medicine
DX: K29.70 Gastritis, unspecified, without bleeding (principal); Z51.81 Encounter for therapeutic drug level monitoring; Z79.01 Long term (current) use of anticoagulants
CPT/HCPCS: 36415; 85610

== ENCOUNTER 2022-08-13 13:41 | Inpatient (IN) | payer MEDICARE, OTHER, SELFPAY ==
[2022-08-13] VITALS (21 sets, daily range): BP systolic 137–176; BP diastolic 60–90; PULSE 59–84; RESP 18–20; TEMP 36.6–36.9; O2SAT 92–99; BMI 25.4; BMI 25.1
--- NOTE | 2022-08-13 13:38 | ECG_ITS ---
APPROVED REPORT Exam: Resting ECG HR:60 bpm ECG Measurements Heart Rate 60 AXES QRSd 95 QRS 2 QT 394 T -38 QTc 395 Conclusion ATRIAL FLUTTER/TACHYCARDIA ST DEVIATION AND MODERATE T-WAVE ABNORMALITY, CONSIDER INFERIOR ISCHEMIA [-0.1+ mV T-WAVE IN II/aVF] ABNORMAL ECG UNCONFIRMED REPORT Electronically signed by : Jose Manuel Cao MD 08/13/2022 21:13:57
--- NOTE | 2022-08-13 13:49 | XR_ITS ---
FINAL REPORT CLINICAL HISTORY: chest pain, stemi alert FINDINGS: Mild cardiomegaly is noted. There are multiple sternotomy wires. The mediastinum is within normal limits. There are chronic changes at the lung bases. There is scarring in the left lung base. There is no pleural effusion. There is no pneumothorax. The bony thorax is intact. IMPRESSION: No acute cardiopulmonary process. Reviewed, Interpreted and Dictated by Russel Bunch MD Transcribed by Jace Mckeon Authenticated and [facility]
--- NOTE | 2022-08-13 14:01 | ECG_ITS ---
APPROVED REPORT Exam: Resting ECG HR:55 bpm ECG Measurements Heart Rate 55 AXES QRSd 93 QRS 9 QT 418 T -3 QTc 407 Conclusion ATRIAL FLUTTER/TACHYCARDIA WITH SLOW VENTRICULAR RESPONSE MODERATE ST DEPRESSION [0.05+ mV ST DEPRESSION] ABNORMAL ECG UNCONFIRMED REPORT Electronically signed by : Jose Manuel Cao MD 08/13/2022 21:14:11
[2022-08-13 14:06] LABS: Basophils # 0.1 K/mm3 (0-0.2); Basophils % 0.8 % (0.1-2.0); Eosinophils # 0.1 K/mm3 (0.0-0.4); Eosinophils % 1.4 % (0.1-12.0); Hematocrit 43.5 % (42.0-52.0); Hemoglobin 13.8 g/dL (14.1-18.0); Lymphocytes # 1.5 K/mm3 (0.7-4.5); Lymphocytes % 21.7 % (10-50); Mean Corpuscular HGB Conc 31.6 g/dL (31.8-35.4); Mean Corpuscular Hemoglobin 29.8 pg (27.0-31.2); Mean Corpuscular Volume 94.3 fl (80-94); Mean Platelet Volume 7.4 fl (7.4-10.4); Monocytes # 0.3 K/mm3 (0.1-1.0); Monocytes % 4.4 % (1.7-9.3); Neutrophils # 4.9 K/mm3 (1.8-7.8); Neutrophils % 71.7 % (37.0-80.0); Platelet Count 178 K/mm3 (142-424); Red Blood Count 4.62 M/mm3 (4.60-6.20); White Blood Count 6.8 K/mm3 (4.8-10.8)
--- NOTE | 2022-08-13 14:07 | PC.NURSE ---
ekgs being sent to dr. valdez
--- NOTE | 2022-08-13 14:09 | PC.NURSE ---
ER spoke with dr. valdez at this time, per Dr. Valdez call stemi alert
--- NOTE | 2022-08-13 14:12 | IR_ITS ---
APPROVED REPORT Patient Location: Emergent Script Editor: SERGEY Castillo RT (R) PROCEDURES Selective coronary angiogram Drug-eluting stent deployment to the proximal and mid LAD in a contiguous manner Drug-eluting stent deployment to the proximal and mid circumflex artery in a contiguous manner INDICATION Acute anterior ST elevation myocardial infarction, Coronary artery disease Informed consent was obtained prior to the procedure. COMPLICATIONS None Estimated Blood Loss: Less than 10 mls TECHNIQUE One percent lidocaine used to anesthetize the right anterior aspect of the wrist. The right radial artery was accessed via the Seldinger technique. A 6 Stateless sheath was placed in the right radial artery. 2.5 mg of verapamil, 800 mcg of nitroglycerin, 1mg Lidocaine and 5000 U Heparin were given through the arterial sheath. The papa catheter was also used to perform selective coronary angiography. Therapeutic heparin had been administered giving an ACT out of range. A Choice PT extra-support wire was placed in the distal LAD and a 3.5 x 12 mm resolute Jam stent was deployed at 20 jessica reducing the stenosis. The wire was pulled back and then placed into the circumflex artery where a 3.5 x 38 mm resolute Naoma stent was deployed at 18 jessica. A small dissection was identified distally therefore 3.5 x 8 mm resolute Jam stent was placed distal to this stent yet still overlapping it and deployed at 14 jessica. The balloon was brought back and deployed at 18 jessica to mesh the 2 stents. There still appeared to be slow flow down the LAD therefore the wire was placed back down the LAD and a 3 mm x 38 mm resolute Naoma stent was deployed at 18 jessica reducing the stenosis. A 3.5 x 12 mm balloon from the stent was then placed back into the proximal portion of the stent deployed at 24 jessica then advanced and deployed at 20 jessica into the mid LAD to post dilate. There was haziness at the 3.5 mm proximal stent circumflex therefore 3.5 x 18 mm resolute Naoma stent was then placed proximal to the first stent in the circumflex artery still overlapping it and then deployed at 24 jessica reducing the stenosis. JEANNIE II flow was present down the LAD at the beginning of the procedure with JEANNIE-3 flow at the end of the procedure. JEANNIE-3 flow was present down the circumflex artery before and after the procedure. At the end the procedure the apparatus was removed the sheath was removed good hemostasis was achieved using TR banding patient was transferred to the postop putting in stable condition ANGIOGRAPHIC RESULTS The left main artery Short and normal The left anterior descending artery Has an undersized proximal stent which is initially patent and then has a concentric 80% stenosis. There is a long 40% stenosis followed by mid vessel 70% concentric stenosis The circumflex artery Large and dominant and has proximal 60% stenosis with additional 70 and 80% stenosis extending to a large first obtuse marginal artery The right coronary artery Nondominant yet still large and normal The OLIVEIRA ventriculogram reveals Not performed The left ventricular end-diastolic pressure Not measured IMPRESSION Anterior ST elevation myocardial infarction which had improved with JEANNIE II flow by the time the patient arrived to the [employer] from the emergency department Successful stenting of the proximal to mid LAD severe disease reduced to 0% with 2 contiguous drug-eluting stents Successful stenting of the proximal to mid circumflex artery severe disease reduced to 0% with 3 contiguous drug-eluting stents PLAN 1. Plavix 600 mg now followed by 75 mg daily 2. Continue triple therapy with Plavix 75 mg daily aspirin 81 mg daily plus Coumadin with a
--- NOTE | 2022-08-13 14:12 | HMH.EDCP ---
Discharge Plan Disposition Patient Disposition: Admitted As Inpatient Condition: Serious Chief Complaint: Chest Pain Prescriptions Prescriptions: No Action furosemide [Lasix] 40 mg tablet 40 mg PO DAILY Qty: 90 3RF tramadol 50 mg tablet 50 mg PO Q8H PRN (Reason: pain) Qty: 90 3RF losartan 50 mg tablet 50 mg PO DAILY Qty: 90 3RF clonazepam 1 mg tablet 1 mg PO BID Qty: 60 5RF warfarin 4 mg tablet 4 mg PO WEEKLY Qty: 30 2RF Rx Instructions: take one 4mg tablet once a week (Wednesday) warfarin 3 mg tablet See Rx Instructions .ROUTE .COMPLEX Qty: 60 2RF Dose Instruction: TAKE 1 TABLET BY MOUTH EVERY WEDNESDAY, WEDNESDAY, WEDNESDAY, WEDNESDAY, AND WEDNESDAY. Rx Instructions: TAKE 1 TABLET BY MOUTH EVERY WEDNESDAY, WEDNESDAY, WEDNESDAY, WEDNESDAY, AND WEDNESDAY. aspirin [Adult Low Dose Aspirin] 81 mg tablet,delayed release (DR/EC) 81 mg PO DAILY Rx Instructions: TAKE 4MG EVERY WEDNESDAY simvastatin 40 mg tablet See Rx Instructions .ROUTE .COMPLEX Qty: 90 0RF Dose Instruction: TAKE 1 TABLET BY MOUTH EVERY EVENING. Rx Instructions: TAKE 1 TABLET BY MOUTH EVERY EVENING. omeprazole 20 mg capsule,delayed release(DR/EC) See Rx Instructions .ROUTE .COMPLEX Qty: 90 0RF Dose Instruction: TAKE 1 CAPSULE BY MOUTH DAILY. Rx Instructions: TAKE 1 CAPSULE BY MOUTH DAILY. levothyroxine 137 mcg tablet See Rx Instructions .ROUTE .COMPLEX Qty: 90 0RF Dose Instruction: TAKE 1 TABLET BY MOUTH DAILY. Rx Instructions: TAKE 1 TABLET BY MOUTH DAILY. potassium chloride 10 mEq tablet,ER particles/crystals See Rx Instructions .ROUTE .COMPLEX Qty: 90 0RF Dose Instruction: TAKE 1 TABLET BY MOUTH DAILY. Rx Instructions: TAKE 1 TABLET BY MOUTH DAILY. metoprolol tartrate 50 mg tablet See Rx Instructions .ROUTE .COMPLEX Qty: 180 3RF Dose Instruction: TAKE ONE (1) TABLET BY MOUTH TWO TIMES A DAY. Rx Instructions: TAKE ONE (1) TABLET BY MOUTH TWO TIMES A DAY. nitroglycerin 0.4 mg tablet, sublingual See Rx Instructions .ROUTE .COMPLEX Qty: 25 0RF Dose Instruction: TAKE 1 TABLET SUBLINGUAL ROUTE FOR CHEST PAIN EVERY 5 MINUTES TIMES 3 DOSES, IF STILL PAIN GO TO ER. Rx Instructions: TAKE 1 TABLET SUBLINGUAL ROUTE FOR CHEST PAIN EVERY 5 MINUTES TIMES 3 DOSES, IF STILL PAIN GO TO ER. Discharge ED Provider: Mario Carranza Chest Pain HPI General Chief Complaint: Chest Pain Stated Complaint: chest pain Time Seen by Provider: 08/13/22 13:42 Mode of Arrival: EMS Source of Information: Patient Limitations: No Limitations Description of Symptoms (Recalled from ER Triage Doc. by RN): Pt reports chest tightness that began while walking into his kitchen while at home today. Pt reports he got hot and sweaty when pain/tightness began. Pt took 2 nitro pills captain fishing vessel of ems, reports nitro helped tightness some but it is still present. Pt unable to rate pain. History of Present Illness HPI narrative: Patient is a 87-year-old male with a past medical history of CAD, atrial fibrillation, mechanical valve on warfarin, hyperlipidemia, hypertension who presents with concern for chest pain. Approximately 1.5 hours prior to arrival he started to experience substernal chest pain. He says that he also got nauseous and diaphoretic during this time. He says that it started radiating up into the left side of his jaw. He denies any shortness of breath. He has been taking his warfarin that he takes for his mechanical valve. He took an 81 mg aspirin and also took 2 nitro prior to arrival. Denies any abdominal pain. He has not vomited. He says that the pain is still persistent. Related Data Home Medications Medication Instructions Recorded Confirmed aspirin 81 mg tablet,delayed 81 mg PO DAILY 04/09/22 07/24/22 release (Adult Low Dose Aspirin) Previous Rx's Medication Instructions Recorded furosemide 40 mg tablet (Lasi
[2022-08-13 14:13] LABS: Coronavirus 19, PCR Not Detected (NotDetected); Influenza A, PCR Not Detected (NotDetected); Influenza B, PCR Not Detected (NotDetected)
[2022-08-13 14:14] LABS: Chloride 103 mmol/L (98-107); Potassium 4.2 mmoL/L (3.5-5.1); Sodium 142 mmol/L (136-145)
[2022-08-13 14:16] LABS: Lipase 62 U/L (23-300)
[2022-08-13 14:17] LABS: Alanine Aminotransferase 16 U/L (12-78); Albumin Level 4.3 g/dl (3.5-5.0); Alkaline Phosphatase 62 U/L (38-126); Anion Gap 12.2 mEq/L (5-15); Aspartate Amino Transferase 30 U/L (17-59); Bilirubin,Direct 0.2 mg/dl (0.0-0.4); Bilirubin,Indirect 0.7 mg/dL (0.0-0.9); Bilirubin,Total 0.9 mg/dl (0.2-1.3); Bilirubin,Unconjugated 0.8 mg/dL (0.0-1.1); Blood Urea Nitrogen 20 mg/dl (9-20); Calcium 9.1 mg/dl (8.4-10.2); Carbon Dioxide 31 mmol/L (22.0-30.0); Creatinine Clearance Estimated 52 mL/min (50-200); Estimated Glomerular Filt Rate 106 ml/min (>60); GFR (African American) 129 ML/MIN (>60); Glucose 98 mg/dl (74-100); Total Protein,Serum 7.2 g/dl (6.3-8.2)
--- NOTE | 2022-08-13 14:17 | PC.NURSE ---
ER spoke with hospitalist dr. archuleta, household appliance mechanic aware of admission
--- NOTE | 2022-08-13 14:17 | PC.NURSE ---
pt to sleep lab technologist via stretcher on [employer] monitor, with mini cotton and mini ribeiro and monse hutton aprn
--- NOTE | 2022-08-13 14:17 | PC.NURSE ---
PT being transported to [facility] at this time
--- NOTE | 2022-08-13 14:20 | PC.NURSE ---
contacted pts son Westley on the phone at this time, states he will get ahold of family and have family come over to the hospital.
--- NOTE | 2022-08-13 14:22 | EXP.CARD.CON ---
History of Present Illness History of Present Illness Consult date: 08/13/22 Requesting physician: Mario Carranza Consult reason: chest pain Chief complaint: chest pain History of present illness: This is an 87-year-old white gentleman who presented to the emergency department complaints of chest pain. The patient reports that he was walking into his kitchen today while at home and had sudden onset of chest pressure. He states that this is in the substernal aspect of his chest. He states that he got hot and sweaty when the tightness began and he is short of breath with it. He states he kind of feels clammy as well. He denies any nausea or vomiting. The patient states that this was a severe pain when it initially started. He states that he took 2 nitroglycerin pills and called EMS. He states that the nitro glycerin did help to improve the pain but it did not resolve. The patient states that he is still currently having the chest pressure and tightness but is unable to rate the pain. He does state that it is better than it was when he was at home. He states that he had been feeling fine up until today when his chest pain/pressure occurred. He denies any fever, chills, nausea, vomiting, diarrhea, PND orthopnea. He denies any bilateral lower extremity edema. [facility] Medical History (Updated 08/13/22 @ 14:28 by Miracle Carrillo APRN) Atrial flutter Coronary arteriosclerosis Edema of lower extremity snf current use of anticoagulant therapy STEMI (ST elevation myocardial infarction) Tremor Surgical History History of mechanical aortic valve replacement History of mitral valve replacement Stented coronary artery Social History Smoking Status: Never smoker alcohol intake: never substance use type: denies use current occupational status: other Travel in the last 8 weeks: Inside the [place] Review of Systems Review of Systems Review of systems:: pertinent systems reviewed and negative unless documented below Constitutional Constitutional: Reports system reviewed and no additional complaints, except as documented Eyes Eyes: Reports system reviewed and no additional complaints, except as documented ENT Ears, Nose, Mouth, and Throat: Reports system reviewed and no additional complaints, except as documented *Cardiovascular Cardiovascular: Reports system reviewed and no additional complaints, except as documented, Reports chest pain, Reports chest pain at rest, Reports chest pain with activity, Reports diaphoresis, Reports dyspnea, Reports dyspnea on exertion and Denies radiating jaw, neck or arm pain *Respiratory Respiratory: Reports system reviewed and no additional complaints, except as documented, Reports dyspnea and Reports dyspnea on exertion *Gastrointestinal Gastrointestinal: Reports system reviewed and no additional complaints, except as documented *Genitourinary Genitourinary: Reports system reviewed and no additional complaints, except as documented *Musculoskeletal Musculoskeletal: Reports system reviewed and no additional complaints, except as documented Integumentary/Breasts Skin/Breast: Reports system reviewed and no additional complaints, except as documented *Neurologic Neurologic: Reports system reviewed and no additional complaints, except as documented Psychiatric Psychiatric: Reports system reviewed and no additional complaints, except as documented Endocrine Endocrine: Reports system reviewed and no additional complaints, except as documented Hematologic/Lymphatic Hematologic/Lymphatic: Reports system reviewed and no additional complaints, except as documented Allergic/Immunologic Allergic/Immunologic: Reports system reviewed and no additional complaints, except as documented Exam Data for Last 24 hours Vital signs and Labs for Last 24 Hours: Temp Pulse Resp BP Pulse Ox 98.1 F
[2022-08-13 14:26] LABS: NT Pro Brain Natriuretic Pep. 959 pg/mL (0-450)
[2022-08-13 14:29] LABS: Troponin I 0.02 ng/ml (0.00-0.034)
[2022-08-13 14:44] LABS: INR 2.31 (0.9-1.1); Prothrombin Time 23.8 seconds (10.1-12.5)
--- NOTE | 2022-08-13 14:44 | EXP.HP ---
History of Present Illness *Admission Date: 08/13/22 *Reason for visit:: STEMI, ACS *History of present illness: Mr Randle is an 87-year-old white gentleman who presented to the emergency department complaints of chest pain and shortness of breath. He reports the episode began after walking into his kitchen today at home. Sudden onset of chest pressure. Substernal in location, he became hot, diaphoretic, had tightness and shortness of breath. States his hands felt cold. Denied any nausea, vomiting, diarrhea, syncope. Pain classified as intense when it began. He reports taking 2 nitroglycerin pills and calling EMS. He was brought to the ER via EMS where changes were noted on EKG. STEMI alert was called and patient was taken to the [facility] for intervention. States that he had been feeling fine up until today when his chest pain/pressure occurred.? He denies any fever, chills, nausea, vomiting, diarrhea, PND orthopnea.? He denies any bilateral lower extremity edema. On evaluation after heart cath, still having some chest discomfort but not as significant as initial onset. Is alert and oriented. Left heart cath findings: Anterior ST elevation myocardial infarction which had improved with JEANNIE II flow by the time the patient arrived to the [facility] from the emergency department Successful stenting of the proximal to mid LAD severe disease reduced to 0% with 2 contiguous drug-eluting stents Successful stenting of the proximal to mid circumflex artery severe disease reduced to 0% with 3 contiguous drug-eluting stents [facility] Medical History Atrial flutter Coronary arteriosclerosis Edema of lower extremity [facility]FP current use of anticoagulant therapy STEMI (ST elevation myocardial infarction) Tremor Surgical History History of mechanical aortic valve replacement History of mitral valve replacement Stented coronary artery Social History Smoking Status: Never smoker alcohol intake: never substance use type: denies use current occupational status: other Travel in the last 8 weeks: Inside the [place] Review of Systems Review of Systems Review of systems (narrative): 14 point review of systems performed, pertinent positives and negatives as per HPI *Neurologic Neurologic: Reports system reviewed and no additional complaints, except as documented Meds Home Medications and Allergies Home Medications Medication Instructions Recorded Confirmed Type aspirin 81 mg tablet,delayed 81 mg PO DAILY HEART HEALTH 04/09/22 08/13/22 History release (Adult Low Dose Aspirin) clonazepam 1 mg tablet 1 mg PO BID Anxiety 08/13/22 08/13/22 History furosemide 40 mg tablet (Lasix) 40 mg PO DAILYP PRN Edema 08/13/22 08/13/22 History levothyroxine 137 mcg tablet 137 mcg PO DAILY THYROID 08/13/22 08/13/22 History losartan 50 mg tablet 50 mg PO DAILY Hypertension 08/13/22 08/13/22 History metoprolol tartrate 50 mg tablet 50 mg PO BID Hypertension 08/13/22 08/13/22 History nitroglycerin 0.4 mg sublingual 0.4 mg sublingual Q5MINP PRN Chest 08/13/22 08/13/22 History tablet Pain omeprazole 20 mg capsule,delayed 20 mg PO DAILY GERD 08/13/22 08/13/22 History release potassium chloride 10 mEq 10 meq PO DAILY Supplement 08/13/22 08/13/22 History tablet,extended release(part/cryst) simvastatin 40 mg tablet 40 mg PO HS Cholesterol 08/13/22 08/13/22 History tramadol 50 mg tablet 50 mg PO TIDP PRN Moderate Pain 08/13/22 08/13/22 History (Scale Score 5-6) warfarin 3 mg tablet See Rx Instructions .Route 08/13/22 History .COMPLEX AFIB warfarin 4 mg tablet 4 mg PO WEEKLY AFIB 08/13/22 History New Prescriptions to Start Prescriptions: Allergies Allergy/AdvReac Type Severity Reaction Status Date / Time codeine [CODEINE] Allergy Unknown Verified 07/24/22 09:59 Exam
[2022-08-13 15:20] LABS: CATHL Activated Clotting Time > 400 SEC (74-125)
[2022-08-13 15:21] LABS: CATHL Activated Clotting Time > 400 SEC (74-125)
[2022-08-13 19:53] LABS: Troponin I 2.14 ng/ml (0.00-0.034)
[2022-08-14] VITALS: BP 120/56; PULSE 60; PULSE 79; RESP 18; TEMP 37.1; O2SAT 93
--- NOTE | 2022-08-14 01:26 | ECG_ITS ---
APPROVED REPORT Exam: Resting ECG HR:66 bpm ECG Measurements Heart Rate 66 AXES QRSd 97 QRS 17 QT 418 T 47 QTc 431 Conclusion ATRIAL FLUTTER/TACHYCARDIA ABNORMAL RHYTHM ECG UNCONFIRMED REPORT Electronically signed by : Jose Manuel Cao MD 08/15/2022 21:17:49
[2022-08-14 04:00] VITALS: BP 119/54; PULSE 60; PULSE 65; RESP 16; TEMP 36.8; O2SAT 95
[2022-08-14 04:28] VITALS: BMI 23.3
--- NOTE | 2022-08-14 04:50 | PC.NURSE ---
pt has rested intermittently t/o shift, dressing to right radial cath site, C/D/I, telemetry has shown SA with PACs to a. warren, EKG this shift showed a flutter, HR 64-79, SBP 119-176, remains on room air with O2 sats 93-95%, has complained of some mild chest pain, nitro in place
[2022-08-14 07:10] LABS: Basophils % 0.4 % (0.1-2.0); Eosinophils # 0.1 K/mm3 (0.0-0.4); Eosinophils % 0.9 % (0.1-12.0); Hematocrit 39.8 % (42.0-52.0); Lymphocytes # 1.5 K/mm3 (0.7-4.5); Lymphocytes % 14.5 % (10-50); Mean Corpuscular HGB Conc 32.5 g/dL (31.8-35.4); Mean Corpuscular Hemoglobin 29.8 pg (27.0-31.2); Mean Corpuscular Volume 91.6 fl (80-94); Mean Platelet Volume 7.2 fl (7.4-10.4); Monocytes # 0.6 K/mm3 (0.1-1.0); Monocytes % 5.7 % (1.7-9.3); Neutrophils # 7.8 K/mm3 (1.8-7.8); Neutrophils % 78.4 % (37.0-80.0); Platelet Count 149 K/mm3 (142-424); Red Blood Count 4.35 M/mm3 (4.60-6.20); Red Cell Distribution Width 14.2 % (11.5-17.5)
--- NOTE | 2022-08-14 07:14 | P.CONPHA_ITS ---
Pharmacy Intervention Comments: Medication reconciliation completed via external fill history and patient interview. Of note, patient explains he takes warfarin 3 mg daily on Wednesday- Wednesday and 4 mg on Wednesday. -Elenita Omalley, PharmD Candidate 2022
[2022-08-14 07:24] LABS: Alanine Aminotransferase 21 U/L (12-78); Albumin Level 3.7 g/dl (3.5-5.0); Albumin/Globulin Ratio 1.4 (1.1-1.8); Alkaline Phosphatase 71 U/L (38-126); Anion Gap 12.9 mEq/L (5-15); Aspartate Amino Transferase 161 U/L (17-59); Bilirubin,Total 1.2 mg/dl (0.2-1.3); Blood Urea Nitrogen 17 mg/dl (9-20); Calcium 8.8 mg/dl (8.4-10.2); Carbon Dioxide 26 mmol/L (22.0-30.0); Chloride 103 mmol/L (98-107); Creatinine Clearance Estimated 49 mL/min (50-200); Estimated Glomerular Filt Rate 91 ml/min (>60); GFR (African American) 110 ML/MIN (>60); Globulin 2.7 g/dL (1.3-3.2); Glucose 102 mg/dl (74-100); Magnesium 1.9 mg/dl (1.6-2.3); Potassium 3.9 mmoL/L (3.5-5.1); Sodium 138 mmol/L (136-145); Total Protein,Serum 6.4 g/dl (6.3-8.2)
--- NOTE | 2022-08-14 07:52 | EXP.DC.SUM ---
General Admission date:: 08/13/22 Discharge date: 08/14/22 HPI HPI HPI: Mr Randle is an 87-year-old white gentleman who presented to the emergency department complaints of chest pain and shortness of breath. He reports the episode began after walking into his kitchen today at home. Sudden onset of chest pressure. Substernal in location, he became hot, diaphoretic, had tightness and shortness of breath. States his hands felt cold. Denied any nausea, vomiting, diarrhea, syncope. Pain classified as intense when it began. He reports taking 2 nitroglycerin pills and calling EMS. He was brought to the ER via EMS where changes were noted on EKG. STEMI alert was called and patient was taken to the [facility] for intervention. States that he had been feeling fine up until today when his chest pain/pressure occurred.? He denies any fever, chills, nausea, vomiting, diarrhea, PND orthopnea.? He denies any bilateral lower extremity edema. On evaluation after heart cath, still having some chest discomfort but not as significant as initial onset. Is alert and oriented. Left heart cath findings: Anterior ST elevation myocardial infarction which had improved with JEANNIE II flow by the time the patient arrived to the [facility] from the emergency department Successful stenting of the proximal to mid LAD severe disease reduced to 0% with 2 contiguous drug-eluting stents Successful stenting of the proximal to mid circumflex artery severe disease reduced to 0% with 3 contiguous drug-eluting stents Hospital Course Hospital Course Hospital Course: 87-year-old male who presented with ACS, significant coronary history including history of CABG 20 years ago, previous stenting, and unstable angina on presentation with EKG changes consistent with anterior DC.? Patient emergently taken to the [facility] for intervention.? Problems addressed as follows: ACS/STEMI History of CABG CAD/HLD Chronic A. fib -Status post left heart cath 08/14 with placement of 5 drug-eluting stents in total.? See report for full details. Echo obtained, preliminary results show EF of 55%. Cardiology assisted with care during admission. Plan to continue metoprolol and losartan. Continue triple therapy with Plavix, aspirin, Coumadin for the first month. We will discontinue aspirin thereafter and continue just Plavix and Coumadin. Patient established with Coumadin clinic, continue to follow as an outpatient with them. Blood pressure well controlled during hospitalization. LDL goal less than 55, controlled on simvastatin. No changes to this medication. Will need close follow-up with cardiology in the coming weeks. -Would benefit from cardiac rehab, defer this to cardiology in the outpatient setting. Medically stable for discharge home. Medication sent to patient's pharmacy. Exam Data for Last 24 hours Vital signs and Labs for Last 24 Hours: Temp Pulse Resp BP Pulse Ox 98.2 F 65 16 119/54 L 95 08/14/22 04:00 08/14/22 04:00 08/14/22 04:00 08/14/22 04:00 08/14/22 04:00 Laboratory Results - last 24 hr 08/13/22 13:50: WBC 6.8, RBC 4.62, Hgb 13.8 L, Hct 43.5, MCV 94.3 H, MCH 29.8, MCHC 31.6 L, RDW 15.0, Plt Count 178, MPV 7.4, Neut % (Auto) 71.7, Lymph % (Auto) 21.7, Ada % (Auto) 4.4, Eos % (Auto) 1.4, Baso % (Auto) 0.8, Neut # (Auto) 4.9, Lymph # (Auto) 1.5, Ada # (Auto) 0.3, Eos # (Auto) 0.1, Baso # (Auto) 0.1 08/13/22 13:50: Troponin I 0.02, NT-Pro-B Natriuret Pep 959 H, Lipase 62 08/13/22 13:50: Sodium 142, Potassium 4.2, Chloride 103, Carbon Dioxide 31 H, Anion Gap 12.2, BUN 20, Creatinine 0.70, Estimated Creat Clear 52, Estimated GFR 106, Est GFR ( Amer) 129, Glucose 98, Calcium 9.1, Total Bilirubin 0.9, Direct Bilirubin 0.2, Conjugated Bilirubin 0.0, Indirect Bilirubin 0.7, Unconjugated Bilirubin 0.8, AST 30, ALT 16, Alkaline Phosphatase 62, Total Protein 7.2, Albumin 4.3 08/13/22 13:50: SARS-CoV-2 (PCR) Not detected, Influenza A Untype (PCR) Not detected, Influenza Ty
[2022-08-14 08:00] VITALS: BP 111/53; PULSE 70; PULSE 74; RESP 20; TEMP 36.9; O2SAT 96
[2022-08-14 08:22] LABS: INR 2.28 (0.9-1.1); Prothrombin Time 23.5 seconds (10.1-12.5)
[2022-08-14 08:58] LABS: Chol/HDL Ratio 4.3 (1-3.5); Cholesterol 86 mg/dl (140-200); HDL Cholesterol 20 mg/dl (40-60); Triglycerides 77 mg/dl (30-150); VLDL Cholesterol 15 mg/dL (0-40)
[2022-08-14 09:09] LABS: Direct LDL Cholesterol 43.79 mg/dL (100-129)
--- NOTE | 2022-08-14 10:03 | EXP.CARD.PN ---
Subjective Subjective Date: 08/14/22 Time: 10:00 Principal diagnosis: STEMI Interval history: This is an 87-year-old white gentleman who presented to the emergency department with complaints of chest pain. The patient had been walking through his kitchen when he had sudden onset of substernal chest pressure that did not radiate. It was associated with diaphoresis and shortness of breath as well as clamminess. The patient took 2 nitroglycerin and called EMS. The patient states that the chest pain improved but did not resolve. When the patient got here to [facility] he was found to be having an anterior STEMI with reciprocal changes. The patient was taken to the [facility] and was found to have an anterior ST elevation myocardial infarction which improved JEANNIE II flow by the time the patient arrived to the [facility] from the ED. He had successful stenting to the mid LAD with 2 drug-eluting stents and successful stenting of the mid circumflex artery with 3 drug-eluting stents. He will remain on Plavix and aspirin for dual antiplatelet therapy. This morning he states that he had some chest pain very early this morning but it has since resolved and he feels great. He denies any shortness of breath or edema. He denies any fever, chills, nausea, vomiting, diarrhea, PND or orthopnea. Exam Data for Last 24 hours Vital signs and Labs for Last 24 Hours: Temp Pulse Resp BP Pulse Ox 98.2 F 65 16 119/54 L 95 08/14/22 04:00 08/14/22 04:00 08/14/22 04:00 08/14/22 04:00 08/14/22 04:00 Laboratory Results - last 24 hr 08/13/22 13:50: WBC 6.8, RBC 4.62, Hgb 13.8 L, Hct 43.5, MCV 94.3 H, MCH 29.8, MCHC 31.6 L, RDW 15.0, Plt Count 178, MPV 7.4, Neut % (Auto) 71.7, Lymph % (Auto) 21.7, Toole % (Auto) 4.4, Eos % (Auto) 1.4, Baso % (Auto) 0.8, Neut # (Auto) 4.9, Lymph # (Auto) 1.5, Toole # (Auto) 0.3, Eos # (Auto) 0.1, Baso # (Auto) 0.1 08/13/22 13:50: Troponin I 0.02, NT-Pro-B Natriuret Pep 959 H, Lipase 62 08/13/22 13:50: Sodium 142, Potassium 4.2, Chloride 103, Carbon Dioxide 31 H, Anion Gap 12.2, BUN 20, Creatinine 0.70, Estimated Creat Clear 52, Estimated GFR 106, Est GFR ( Amer) 129, Glucose 98, Calcium 9.1, Total Bilirubin 0.9, Direct Bilirubin 0.2, Conjugated Bilirubin 0.0, Indirect Bilirubin 0.7, Unconjugated Bilirubin 0.8, AST 30, ALT 16, Alkaline Phosphatase 62, Total Protein 7.2, Albumin 4.3 08/13/22 13:50: SARS-CoV-2 (PCR) Not detected, Influenza A Untype (PCR) Not detected, Influenza Type B (PCR) Not detected 08/13/22 13:50: PT 23.8 H, INR 2.31 H 08/13/22 15:21: Activated Clotting Time > 400 H* 08/13/22 15:47: Activated Clotting Time > 400 H* 08/13/22 19:22: Troponin I 2.14 H 08/14/22 06:45: WBC 10.0 D, RBC 4.35 L, Hgb 13.0 L, Hct 39.8 L, MCV 91.6, MCH 29.8, MCHC 32.5, RDW 14.2, Plt Count 149, MPV 7.2 L, Neut % (Auto) 78.4, Lymph % (Auto) 14.5, Toole % (Auto) 5.7, Eos % (Auto) 0.9, Baso % (Auto) 0.4, Neut # (Auto) 7.8, Lymph # (Auto) 1.5, Toole # (Auto) 0.6, Eos # (Auto) 0.1, Baso # (Auto) 0.0 08/14/22 06:45: Triglycerides 77, Cholesterol 86 L, LDL Cholesterol Direct 43.79 L, VLDL Cholesterol 15, HDL Cholesterol 20 L, Cholesterol/HDL Ratio 4.3 H 08/14/22 06:45: Sodium 138, Potassium 3.9, Chloride 103, Carbon Dioxide 26, Anion Gap 12.9, BUN 17, Creatinine 0.80, Estimated Creat Clear 49, Estimated GFR 91, Est GFR ( Amer) 110, Glucose 102 H, Calcium 8.8, Magnesium 1.9, Total Bilirubin 1.2, AST 161 H D, ALT 21 D, Alkaline Phosphatase 71, Total Protein 6.4, Albumin 3.7 D, Globulin 2.7, Albumin/Globulin Ratio 1.4 08/14/22 08:00: PT 23.5 H, INR 2.28 H I & O for Last 24 hours: Intake & Output 08/11/22 08/12/22 08/13/22 08/14/22 23:59 23:59 23:59 23:59 Intake Total 480 / 480 Output Total 200 / 200 400 / 400 Balance 280 / 280 -400 / -400 Weight 160 lb 8 oz 149 lb Constitutional Constitutional: no acute distress and average body habitus *Routine HEENT Exam Head: Present normocephalic and atraumatic ENT: Present
--- NOTE | 2022-08-14 10:19 | HMH.OTEV ---
OT Inpatient Evaluation Rehab OT IP Evaluation Start: 08/14/22 08:51 Freq: ONCE Status: Complete Protocol: Document 08/14/22 10:09 PERRY (Rec: 08/14/22 10:19 PERRY [id number]) Rehab OT IP Assessment Subjective History Mr Randle is an 87-year-old white gentleman who presented to the emergency department complaints of chest pain and shortness of breath. He reports the episode began after walking into his kitchen today at home. Sudden onset of chest pressure. Substernal in location, he became hot, diaphoretic, had tightness and shortness of breath. States his hands felt cold. Denied any nausea, vomiting, diarrhea , syncope. Pain classified as intense when it began. He reports taking 2 nitroglycerin pills and calling EMS. He was brought to the ER via EMS where changes were noted on EKG. STEMI alert was called and patient was taken to the [facility] Pilot for intervention. States that he had been feeling fine up until today when his chest pain/pressure occurred.? He denies any fever , chills, nausea, vomiting, diarrhea, PND orthopnea.? He denies any bilateral lower extremity edema. On evaluation after heart cath , still having some chest discomfort but not as significant as initial onset. Is alert and oriented. Left heart cath findings: Anterior ST elevation myocardial infarction which had improved with JEANNIE II flow by the time the patient arrived to the [facility] from the emergency department. Successful stenting of the proximal to mid LAD severe disease reduced to 0% with 2
--- NOTE | 2022-08-14 11:28 | HMH.PTEV ---
Physical Therapy Evaluation Rehab PT IP Evaluation Start: 08/14/22 08:50 Freq: ONCE Status: Active Protocol: Document 08/14/22 11:24 [email or web address] (Rec: 08/14/22 11:28 PHORNE [id number]) Subjective/History History History 87 yowm adm to [facility] for possible STEMI. He reports feeling much better at this time. He lives with spouse, has family assist avaialable, 1 step to enter the home, and has AD for home use, but rarely uses it for ambulation. Subjective Subjective Pt reports no c/o this am, agrees to ambulation. Rehab PT IP Eval Objective Appearance Patient Behavior Appropriate Patient Orientation Person,Place,Time Difficulty following instructions none Speech Pattern Clear Ambulation Patient Able to Ambulate Yes Ambulation Observation IP General Gait Pattern Observation No Deviations/Normal Ambulation Distance (feet) 150 Ambulation Assistive Device None Ambulation Ability Supervision/Stand by Balance Ability to Arise Able, uses arms to help Sitting Balance Steady, safe Standing Balance Steady, wide stance Dynamic Sitting Balance Ability Good Dynamic Standing Balance Ability Good Transfers Bed Transfer Ability Supervision/Stand by Chair Transfer Ability Supervision/Stand by Sit to Stand Bed Transfer Ability Supervision/Stand by Sit to Stand Chair Transfer Ability Supervision/Stand by ROM All Extremities PT ROM Status WFL MMT All Extremities PT MMT WFL Rehab PT IP prob,goals,plan Problems Date of Evaluation: 08/14/22 Discharge Plan PT Discharge Plan Pt currently appears to be at baseline for all mobility and has no inpatient therapy needs . May benefit from outpatient cardiac rehab if appropriate. G -code Required No Eval Complexity Eval Charge Codes 24067 - Moderate Complexity PHYSICIAN CERTIFICATION: I certify the specified therapy services for Jag Randle SR are required, authorized, and reviewed every 30 days.
[2022-08-14 12:00] VITALS: PULSE 60
--- NOTE | 2022-08-14 12:05 | HMH.PHACL ---
PHA Application Assistant Discharge Med Recruitment Advertising Manager: Jag Randle has received discharge medication counseling on the following medications: PATIENT IS CURRENTLY TAKING ASPIRIN 81 MG DAILY, LOSARTAN 50 MG DAILY, METOPROLOL 50 MG BID, AND SIMVASTATIN 40 MG HS. ADDING CLOPIDOGREL 75 MG DAILY.
--- NOTE | 2022-08-18 15:29 | CARE MANAGER ---
Spoke with patient for post-discharge phone interview, patient has no complaints at this time. Patient is aware of appointments and has medications and follow-up.
== END 2022-08-14 13:16 | disposition home or self-care (01) | DRG 248 ==
LOC: ER 14:24 → 2ND 14:28 → CATHLAB 15:20
PROVIDERS: Nurse Practitioner Family; Admitting Provider Internal Medicine Adolescent Medicine; Emergency Provider Student in an Organized Health Care Education/Training Program; Referring Provider Internal Medicine; Visit Provider Internal Medicine Adolescent Medicine
PROC: B2111ZZ Fluoroscopy of Multiple Coronary Arteries using Low Osmolar Contrast (ICD-10-PCS; principal; 2022-08-13 14:15)
DX: I21.3 ST elevation (STEMI) myocardial infarction of unspecified site (principal); I25.10 Atherosclerotic heart disease of native coronary artery without angina pectoris; I25.42 Coronary artery dissection; I48.20 Chronic atrial fibrillation, unspecified; I48.92 Unspecified atrial flutter; Z95.2 Presence of prosthetic heart valve; I11.9 Hypertensive heart disease without heart failure; Z95.1 Presence of aortocoronary bypass graft; E78.2 Mixed hyperlipidemia
CPT/HCPCS: 36415; 71045; 80048; 80053; 80061; 80076; 83690; 83735; 83880; 84484; 85025; 85347; 85610; 92928; 92941; 93005; 93306; 93454; 97162; 97165; 99152; 99153; 99285; C1725; C1769; C1874; C1876; C9600; C9606; C9803; J1644; Q9967; U0003; U0005

== ENCOUNTER → 2022-08-27 13:51 | Outpatient (CLI) | payer MEDICARE, OTHER, SELFPAY ==
[2022-08-27 15:18] LABS: INR 2.29 (0.9-1.1); Prothrombin Time 23.6 seconds (10.1-12.5)
== END ==
PROVIDERS: PCP Family Medicine; Visit Provider Family Medicine
DX: I25.10 Atherosclerotic heart disease of native coronary artery without angina pectoris (principal); Z51.81 Encounter for therapeutic drug level monitoring; Z79.01 Long term (current) use of anticoagulants
CPT/HCPCS: 36415; 85610

== ENCOUNTER → 2022-09-21 09:53 | Outpatient (CLI) | payer MEDICARE, OTHER, SELFPAY ==
[2022-09-21 10:17] LABS: INR 2.32 (0.9-1.1); Prothrombin Time 23.9 seconds (10.1-12.5)
== END ==
PROVIDERS: PCP Emergency Medicine; Visit Provider Emergency Medicine
DX: I25.110 Atherosclerotic heart disease of native coronary artery with unstable angina pectoris (principal); Z51.81 Encounter for therapeutic drug level monitoring; Z79.01 Long term (current) use of anticoagulants
CPT/HCPCS: 36415; 85610

== ENCOUNTER → 2022-12-08 09:16 | Outpatient (CLI) | payer MEDICARE, OTHER, SELFPAY ==
[2022-12-08 10:25] LABS: INR 2.08 (0.9-1.1); Prothrombin Time 21.6 seconds (10.1-12.5)
== END ==
PROVIDERS: PCP Family Medicine; Visit Provider Family Medicine
DX: I48.20 Chronic atrial fibrillation, unspecified (principal); Z51.81 Encounter for therapeutic drug level monitoring; Z79.01 Long term (current) use of anticoagulants
CPT/HCPCS: 36415; 85610

== ENCOUNTER 2023-01-24 09:14 | Emergency (ER) | payer MEDICARE, OTHER, SELFPAY ==
[2023-01-24 09:21] VITALS: BP 143/78; PULSE 64; RESP 18; O2SAT 97; BMI 27.9
--- NOTE | 2023-01-24 09:32 | EXP.UTC ---
Discharge Plan Disposition Patient Disposition: Home, Self-Care Condition: Good Prescriptions Prescriptions: New clindamycin HCl 300 mg capsule 300 mg PO TID 5 Days Qty: 15 0RF mupirocin 2 % ointment 1 applic topical TID 10 Days Qty: 22 0RF Rx Instructions: apply to area as directed No Action aspirin [Adult Low Dose Aspirin] 81 mg tablet,delayed release (DR/EC) 81 mg PO DAILY potassium chloride 10 mEq tablet,ER particles/crystals See Rx Instructions .ROUTE .COMPLEX Qty: 90 0RF Dose Instruction: TAKE 1 TABLET BY MOUTH DAILY. Rx Instructions: TAKE 1 TABLET BY MOUTH DAILY. losartan 50 mg tablet 50 mg PO DAILY furosemide [Lasix] 40 mg tablet 40 mg PO DAILYP PRN (Reason: Edema) clonazepam 1 mg tablet 1 mg PO BID warfarin 4 mg tablet 4 mg PO LAMAS warfarin 3 mg tablet 3 mg PO MOTUWETHFRSA metoprolol tartrate 50 mg tablet 50 mg PO BID nitroglycerin 0.4 mg tablet, sublingual 0.4 mg sublingual Q5MINP PRN (Reason: Chest Pain) Rx Instructions: TAKE 1 TABLET SUBLINGUAL ROUTE FOR CHEST PAIN EVERY 5 MINUTES TIMES 3 DOSES, IF STILL PAIN GO TO ER. levothyroxine 137 mcg tablet See Rx Instructions .ROUTE .COMPLEX Rx Instructions: TAKE 1 TABLET BY MOUTH DAILY. clopidogrel 75 mg tablet See Rx Instructions .ROUTE .COMPLEX Rx Instructions: TAKE 1 TABLET DAILY FOR 30 DAYS. simvastatin 40 mg tablet See Rx Instructions .ROUTE .COMPLEX Rx Instructions: TAKE 1 TABLET BY MOUTH EVERY EVENING. omeprazole 20 mg capsule,delayed release(DR/EC) See Rx Instructions .ROUTE .COMPLEX Rx Instructions: TAKE 1 CAPSULE BY MOUTH DAILY. Referrals Follow up/Referrals: Dagoberto Pereyra MD [Primary Care Provider] - See instructions Activity Restrictions/Add. Instructions Additional Instructions/Restrictions: *Start antibiotic(s) immediately and be sure to take as ordered for the FULL length of time although you may be feeling better or start to see improvement in the next 24-48 hours *Monitor closely. Outlined redness so that you can monitor easier. Follow up immediately for new or worsening symptoms including but not limited to redness, swelling, streaking from site fever or chills. *Warm compress 15 minutes 3-4 times day *Never squeeze or pop these on your own. Seek immediate medical attention next time this occurs *Monitor Temp. Tylenol every 4 hours as needed and ibuprofen every 6 hours as needed (as long as your primary care doctor has told you that it is ok to take both. For fever, aches, pain. ER if no less that 101 despite Tylenol and ibuprofen ?Follow up with your family doctor/primary care physician in the next 48-72 hours if no improvement Clinical Impressions Clinical Impression: Cellulitis and abscess of buttock Instructions Patient Instructions: DI for Cellulitis -- Adult, DI for Skin Abscess Discharge ED Provider: Jolynn Anaya [facility] HPI General Stated complaint: possible abcess on buttocks Mode of Arrival: Ambulatory Source of Information: Patient Limitations: No Limitations Time Seen by Provider: 01/24/23 09:32 Description of Symptoms (Recalled from Triage Doc. by RN): c/o sore on left cheek that he noticed this morning. History of Present Illness Provider Complaint: Patient states that this morning he went to the bathroom and when he wiped he noticed some drainage on the toilet paper and he felt back there and noticed he had a small bump like area that was sore and was worried he may have an abscess starting on his left butt cheek Related Data Home Medications Medication Instructions Recorded Confirmed aspirin 81 mg tablet,delayed 81 mg PO DAILY HEART HEALTH 04/09/22 01/24/23 release (Adult Low Dose Aspirin) clonazepam 1 mg tablet 1 mg PO BID Anxiety 08/13/22 01/24/23 furosemide 40 mg tablet (Lasix) 40 mg PO DAILYP PRN Edema 08/13/22 12/08/22 losartan 50 mg tablet 50 mg PO DAILY Hype
[2023-01-24 09:33] VITALS: BP 143/78; PULSE 64; RESP 18; O2SAT 97; BMI 28.0
[2023-01-24 10:05] VITALS: BP 143/78; PULSE 64; RESP 18; TEMP 36.8; O2SAT 97
== END 2023-01-24 10:05 | disposition home or self-care (01) ==
PROVIDERS: Emergency Provider Nurse Practitioner; PCP Family Medicine
DX: L02.31 Cutaneous abscess of buttock (principal); L03.317 Cellulitis of buttock; I10 Essential (primary) hypertension
CPT/HCPCS: 99212; 99214; G0463

== ENCOUNTER 2023-01-27 10:04 | Emergency (ER) | payer MEDICARE, OTHER, SELFPAY ==
[2023-01-27 10:04] VITALS: BP 171/82; PULSE 81; RESP 18; TEMP 36.6; O2SAT 96; BMI 26.2
--- NOTE | 2023-01-27 10:05 | ECG_ITS ---
APPROVED REPORT Exam: Resting ECG HR:80 bpm ECG Measurements Heart Rate 80 AXES QRSd 98 QRS -1 QT 372 T 49 QTc 408 Conclusion ATRIAL FLUTTER/TACHYCARDIA ABNORMAL RHYTHM ECG UNCONFIRMED REPORT Electronically signed by : Jose Manuel Cao MD 01/27/2023 21:18:25
--- NOTE | 2023-01-27 10:07 | PC.NURSE ---
Dr. Lopez at BS for pt eval
--- NOTE | 2023-01-27 10:09 | CT_ITS ---
FINAL REPORT TECHNIQUE: Postcontrast axial images through the abdomen and pelvis were performed. This study was performed with techniques to keep radiation doses as low as reasonably achievable, (ALARA). Individualized dose reduction techniques using automated exposure control or adjustment of mA and/or kV according to the patient's size were employed. CLINICAL HISTORY: epigastric abdominal pain FINDINGS: Abdomen: There is bibasilar scarring. The liver parenchyma is homogeneous. The gallbladder is incompletely distended with small stones. The spleen is unremarkable. The adrenals are normal. The pancreas is unremarkable. The kidneys enhance appropriately. The aorta is normal in caliber. No free fluid or adenopathy is identified. No findings for mechanical bowel obstruction are identified. Pelvis: The appendix is not identified. The prostate is moderately enlarged. The urinary bladder is unremarkable. No free fluid, free air, abscess or adenopathy is identified. IMPRESSION: No definite acute inflammatory reaction. Distended gallbladder with small stones. Reviewed, Interpreted and Dictated by Russel Bunch MD Transcribed by Iwona Guillen Authenticated and [facility]
--- NOTE | 2023-01-27 10:09 | XR_ITS ---
FINAL REPORT CLINICAL HISTORY: Shortness of breath COMPARISON: 08/13/2022 FINDINGS: There is mild cardiomegaly. Sternotomy wires are present. There is blunting of the left costophrenic angle probably due to pleural and parenchymal scarring. There is no focal infiltrate or edema. There is no pneumothorax. There is no osseous abnormality. IMPRESSION: Blunting of left costophrenic angle, probably due to pleural and parenchymal scarring. Reviewed, Interpreted and Dictated by Russel Bunch MD Transcribed by Dominique Perea Authenticated and . [facility]
[2023-01-27 10:22] LABS: Basophils # 0.1 K/mm3 (0-0.2); Basophils % 0.5 % (0.1-2.0); Eosinophils # 0.2 K/mm3 (0.0-0.4); Eosinophils % 2.1 % (0.1-12.0); Hematocrit 45.3 % (42.0-52.0); Hemoglobin 14.6 g/dL (14.1-18.0); Lymphocytes # 1.5 K/mm3 (0.7-4.5); Lymphocytes % 14.8 % (10-50); Mean Corpuscular HGB Conc 32.2 g/dL (31.8-35.4); Mean Corpuscular Hemoglobin 29.6 pg (27.0-31.2); Mean Corpuscular Volume 91.7 fl (80-94); Mean Platelet Volume 8.1 fl (7.4-10.4); Monocytes # 0.5 K/mm3 (0.1-1.0); Neutrophils # 7.8 K/mm3 (1.8-7.8); Neutrophils % 77.5 % (37.0-80.0); Platelet Count 195 K/mm3 (142-424); Red Blood Count 4.93 M/mm3 (4.60-6.20); Red Cell Distribution Width 14.6 % (11.5-17.5); White Blood Count 10.1 K/mm3 (4.8-10.8)
--- NOTE | 2023-01-27 10:25 | HMH.EDGENADL ---
Discharge Plan Disposition Patient Disposition: Home, Self-Care Prescriptions Prescriptions: New famotidine [Pepcid AC Maximum Strength] 20 mg tablet 20 mg PO BID 42 Days Qty: 84 0RF No Action aspirin [Adult Low Dose Aspirin] 81 mg tablet,delayed release (DR/EC) 81 mg PO DAILY potassium chloride 10 mEq tablet,ER particles/crystals See Rx Instructions .ROUTE .COMPLEX Qty: 90 0RF Dose Instruction: TAKE 1 TABLET BY MOUTH DAILY. Rx Instructions: TAKE 1 TABLET BY MOUTH DAILY. losartan 50 mg tablet 50 mg PO DAILY furosemide [Lasix] 40 mg tablet 40 mg PO DAILYP PRN (Reason: Edema) clonazepam 1 mg tablet 1 mg PO BID warfarin 4 mg tablet 4 mg PO LAMAS warfarin 3 mg tablet 3 mg PO MOTUWETHFRSA metoprolol tartrate 50 mg tablet 50 mg PO BID nitroglycerin 0.4 mg tablet, sublingual 0.4 mg sublingual Q5MINP PRN (Reason: Chest Pain) Rx Instructions: TAKE 1 TABLET SUBLINGUAL ROUTE FOR CHEST PAIN EVERY 5 MINUTES TIMES 3 DOSES, IF STILL PAIN GO TO ER. levothyroxine 137 mcg tablet See Rx Instructions .ROUTE .COMPLEX Rx Instructions: TAKE 1 TABLET BY MOUTH DAILY. clopidogrel 75 mg tablet See Rx Instructions .ROUTE .COMPLEX Rx Instructions: TAKE 1 TABLET DAILY FOR 30 DAYS. simvastatin 40 mg tablet See Rx Instructions .ROUTE .COMPLEX Rx Instructions: TAKE 1 TABLET BY MOUTH EVERY EVENING. omeprazole 20 mg capsule,delayed release(DR/EC) See Rx Instructions .ROUTE .COMPLEX Rx Instructions: TAKE 1 CAPSULE BY MOUTH DAILY. clindamycin HCl 300 mg capsule 300 mg PO TID 5 Days Qty: 15 0RF mupirocin 2 % ointment 1 applic topical TID 10 Days Qty: 22 0RF Rx Instructions: apply to area as directed Referrals Follow up/Referrals: Dagoberto Pereyra MD [Primary Care Provider] - See instructions Activity Restrictions/Add. Instructions Additional Instructions/Restrictions: Follow-up with primary care physician within the next few days. Recommend follow-up with gastroenterology as well within the next few weeks for reassessment and potential discussion for endoscopy Clinical Impressions Clinical Impression: Gastritis Discharge ED Provider: Norm Lopez General Adult HPI General Chief complaint: Chest Pain Stated complaint: CP Time Seen by Provider: 01/27/23 10:05 History of Present Illness HPI narrative: 87-year-old male with history of coronary disease atrial flutter hypertension presents with chest and abdominal pain for 1 week. He says the pain is in the epigastric region worse with eating. No nausea associated. Pain is constant radiating to upper chest and lower abdomen. He has mild distention as well. The pain did get worse when he was exerting himself outside yesterday. No fever or chills. No cough. No dysuria or hematuria. Related Data Home Medications Medication Instructions Recorded Confirmed aspirin 81 mg tablet,delayed 81 mg PO DAILY HEART HEALTH 04/09/22 01/27/23 release (Adult Low Dose Aspirin) clonazepam 1 mg tablet 1 mg PO BID Anxiety 08/13/22 01/27/23 furosemide 40 mg tablet (Lasix) 40 mg PO DAILYP PRN Edema 08/13/22 01/27/23 losartan 50 mg tablet 50 mg PO DAILY Hypertension 08/13/22 01/27/23 metoprolol tartrate 50 mg tablet 50 mg PO BID Hypertension 08/13/22 01/27/23 nitroglycerin 0.4 mg sublingual 0.4 mg sublingual Q5MINP PRN Chest 08/13/22 01/27/23 tablet Pain warfarin 3 mg tablet 3 mg PO MOTUWETHFRSA AFIB 08/13/22 01/27/23 warfarin 4 mg tablet 4 mg PO LAMAS AFIB 08/13/22 01/27/23 clopidogrel 75 mg tablet See Rx Instructions .Route 01/24/23 01/27/23 .COMPLEX . levothyroxine 137 mcg tablet See Rx Instructions .Route 01/24/23 01/27/23 .COMPLEX . omeprazole 20 mg capsule,delayed See Rx Instructions .Route 01/24/23 01/27/23 release .COMPLEX . simvastatin 40 mg tablet See Rx Instructions .Route 01/24/23 01/27/23 .COMPLEX . Previous Rx's Medication Instruc
--- NOTE | 2023-01-27 10:25 | PC.NURSE ---
XR AT BEDSIDE
[2023-01-27 10:29] LABS: INR 2.62 (0.9-1.1); Prothrombin Time 26.8 seconds (10.1-12.5)
[2023-01-27 10:31] VITALS: BP 145/68; PULSE 72; O2SAT 97
[2023-01-27 10:39] LABS: Chloride 101 mmol/L (98-107); Potassium 4.8 mmoL/L (3.5-5.1); Sodium 138 mmol/L (136-145)
[2023-01-27 10:41] LABS: Alanine Aminotransferase 22 U/L (12-78); Alkaline Phosphatase 45 U/L (38-126); Aspartate Amino Transferase 50 U/L (17-59); Bilirubin,Total 1.7 mg/dl (0.2-1.3); Blood Urea Nitrogen 18 mg/dl (9-20); Creatinine Clearance Estimated 52 mL/min (50-200); Estimated Glomerular Filt Rate 80 ml/min (>60); GFR (African American) 96 ML/MIN (>60); Lipase 80 U/L (23-300)
[2023-01-27 10:42] LABS: Albumin Level 4.5 g/dl (3.5-5.0); Albumin/Globulin Ratio 1.6 (1.1-1.8); Anion Gap 16.8 mEq/L (5-15); Calcium 8.4 mg/dl (8.4-10.2); Carbon Dioxide 25 mmol/L (22.0-30.0); Globulin 2.9 g/dL (1.3-3.2); Glucose 107 mg/dl (74-100); Total Protein,Serum 7.4 g/dl (6.3-8.2)
[2023-01-27 10:44] LABS: NT Pro Brain Natriuretic Pep. 767 pg/mL (0-450)
[2023-01-27 10:46] LABS: Troponin I 0.03 ng/ml (0.00-0.034)
--- NOTE | 2023-01-27 10:50 | PC.NURSE ---
pt to ct
--- NOTE | 2023-01-27 11:08 | PC.NURSE ---
PT RETURNED FROM CT
--- NOTE | 2023-01-27 11:11 | PC.NURSE ---
Pt from radiology
[2023-01-27 11:30] VITALS: BP 144/65; PULSE 59; O2SAT 94
--- NOTE | 2023-01-27 11:30 | PC.NURSE ---
ROUNDED ON PT, WARM BLANKET PROVIDED. REPORTS GI COCKTAIL RESOLVED CHEST PAIN
--- NOTE | 2023-01-27 11:46 | PC.NURSE ---
rounded on pt adjusted bed so pt could relax and turn light off, call light at bs
[2023-01-27 12:00] VITALS: BP 133/61; PULSE 62; O2SAT 95
--- NOTE | 2023-01-27 12:17 | PC.NURSE ---
DR HEWITT AT BEDSIDE TO UPDATE PT ON POC
[2023-01-27 12:27] VITALS: BP 133/61; PULSE 73; RESP 18; TEMP 36.6; O2SAT 96
--- NOTE | 2023-01-28 09:34 | PC.NURSE ---
follow up call, Pt states that his stomach is more sore but that is nothing we did, it was sore when he came up here. States he has a fu with on the . No further needs at this time.
== END 2023-01-27 12:29 | disposition home or self-care (01) ==
PROVIDERS: Emergency Provider Emergency Medicine; PCP Family Medicine
DX: R07.9 Chest pain, unspecified (principal); K29.00 Acute gastritis without bleeding
CPT/HCPCS: 71045; 74177; 80053; 83690; 83880; 84484; 85025; 85610; 93005; 96374; 99285; J2405; Q9967

== ENCOUNTER → 2023-07-06 08:26 | Outpatient (CLI) | payer MEDICARE, OTHER, SELFPAY ==
[2023-07-06 19:06] LABS: Coronavirus 19, PCR Not Detected (NotDetected); Influenza A, PCR Not Detected (NotDetected); Influenza B, PCR Not Detected (NotDetected)
[2023-07-06 20:00] LABS: Basophils # 0.1 K/mm3 (0-0.2); Basophils % 0.4 % (0.1-2.0); Eosinophils # 0.1 K/mm3 (0.0-0.4); Eosinophils % 0.7 % (0.1-12.0); Hematocrit 48.1 % (42.0-52.0); Hemoglobin 16.2 g/dL (14.1-18.0); Lymphocytes # 2.2 K/mm3 (0.7-4.5); Lymphocytes % 15.7 % (10-50); Mean Corpuscular HGB Conc 33.7 g/dL (31.8-35.4); Mean Corpuscular Hemoglobin 31.3 pg (27.0-31.2); Mean Corpuscular Volume 92.8 fl (80-94); Mean Platelet Volume 7.8 fl (7.4-10.4); Monocytes # 0.9 K/mm3 (0.1-1.0); Monocytes % 6.1 % (1.7-9.3); Neutrophils # 10.8 K/mm3 (1.8-7.8); Neutrophils % 77.1 % (37.0-80.0); Platelet Count 196 K/mm3 (142-424); Red Blood Count 5.18 M/mm3 (4.60-6.20); Red Cell Distribution Width 14.2 % (11.5-17.5)
== END ==
PROVIDERS: PCP Nurse Practitioner; Visit Provider Nurse Practitioner
DX: J06.9 Acute upper respiratory infection, unspecified (principal); R05.9 Cough, unspecified
CPT/HCPCS: 85025; 87636

== ENCOUNTER → 2023-07-07 13:10 | Outpatient (CLI) | payer MEDICARE, OTHER, SELFPAY ==
--- NOTE | 2023-07-07 13:14 | XR_ITS ---
FINAL REPORT CLINICAL HISTORY: pneumonia, cough, wheeze, coughing up blood since a fall yesterday COMPARISON: 01/27/2023 FINDINGS: TWO-VIEW CHEST There is cardiomegaly. The patient is status post median sternotomy. There is mild bibasilar atelectasis with small left effusion. There is no pneumothorax. IMPRESSION: Bibasilar atelectasis with small left effusion. Reviewed, Interpreted and Dictated by Ronnie Khan III, MD Transcribed by Iwona Guillen Authenticated and [facility]
== END ==
PROVIDERS: PCP Family Medicine; Visit Provider Nurse Practitioner
DX: J18.9 Pneumonia, unspecified organism (principal)
CPT/HCPCS: 71046

== ENCOUNTER → 2023-07-21 10:11 | Outpatient (CLI) | payer MEDICARE, OTHER, SELFPAY ==
[2023-07-21 10:37] LABS: Basophils # 0.1 K/mm3 (0-0.2); Basophils % 0.4 % (0.1-2.0); Eosinophils # 0.1 K/mm3 (0.0-0.4); Eosinophils % 0.4 % (0.1-12.0); Hematocrit 42.2 % (42.0-52.0); Hemoglobin 14.3 g/dL (14.1-18.0); Lymphocytes % 10.8 % (10-50); Mean Corpuscular Hemoglobin 31.2 pg (27.0-31.2); Mean Corpuscular Volume 91.7 fl (80-94); Mean Platelet Volume 7.5 fl (7.4-10.4); Monocytes # 0.8 K/mm3 (0.1-1.0); Monocytes % 4.1 % (1.7-9.3); Neutrophils # 15.9 K/mm3 (1.8-7.8); Neutrophils % 84.3 % (37.0-80.0); Platelet Count 273 K/mm3 (142-424); Red Cell Distribution Width 13.9 % (11.5-17.5); White Blood Count 18.9 K/mm3 (4.8-10.8)
[2023-07-21 10:42] LABS: MANUAL DIFFERENTIAL MANUAL DIFFERENTIAL (MANUAL DIFF)
[2023-07-21 10:53] LABS: INR 3.29 (0.9-1.1); Prothrombin Time 32.9 seconds (10.1-12.5)
[2023-07-21 10:56] LABS: Lymphocytes % 10 % (10-50); Monocytes % 9 % (2-9); Neutrophils % 81 % (42-76); Platelet Estimate Normal; RBC Morphology Normal; Total Cells Counted 100
[2023-07-21 11:24] LABS: Alanine Aminotransferase 21 U/L (12-78); Albumin Level 4.2 g/dl (3.5-5.0); Albumin/Globulin Ratio 1.4 (1.1-1.8); Alkaline Phosphatase 68 U/L (38-126); Anion Gap 14.1 mEq/L (5-15); Aspartate Amino Transferase 37 U/L (17-59); Bilirubin,Total 1.1 mg/dl (0.2-1.3); Blood Urea Nitrogen 20 mg/dl (9-20); Calcium 8.5 mg/dl (8.4-10.2); Carbon Dioxide 25 mmol/L (22.0-30.0); Chloride 103 mmol/L (98-107); Estimated Glomerular Filt Rate 79 ml/min (>60); GFR (African American) 96 ML/MIN (>60); Globulin 3.1 g/dL (1.3-3.2); Glucose 108 mg/dl (74-100); Lipase 40 U/L (23-300); Potassium 4.1 mmoL/L (3.5-5.1); Sodium 138 mmol/L (136-145); Total Protein,Serum 7.3 g/dl (6.3-8.2)
== END ==
PROVIDERS: PCP Family Medicine; Visit Provider Emergency Medicine
DX: I48.91 Unspecified atrial fibrillation (principal); R09.89 Other specified symptoms and signs involving the circulatory and respiratory systems; E87.6 Hypokalemia; I25.10 Atherosclerotic heart disease of native coronary artery without angina pectoris
CPT/HCPCS: 36415; 80053; 83690; 85007; 85025; 85610

== ENCOUNTER 2023-07-21 17:29 | Observation (INO) | payer MEDICARE, OTHER, SELFPAY ==
[2023-07-21 17:30] VITALS: BP 136/57; PULSE 84; RESP 16; TEMP 36.8; O2SAT 93; BMI 26.6
--- NOTE | 2023-07-21 17:34 | XR_ITS ---
PROCEDURE INFORMATION: Exam: XR Chest Exam date and time: 07/21/2023 5:53 PM Age: 88 years old Clinical indication: Shortness of breath; Additional info: Leukocytosuis, SOA TECHNIQUE: Imaging protocol: Radiologic exam of the chest. Views: 1 view. COMPARISON: CR XR CHEST 2V 07/07/2023 1:15 PM FINDINGS: Lungs: Right lower lobe opacities. Strandy bibasilar densities likely representing atelectasis and/or scarring. Pleural spaces: No large pleural effusion. No pneumothorax. Heart/Mediastinum: Calcified atherosclerotic changes of the thoracic aorta. Cardiomegaly. Postsurgical changes of CABG. Bones/joints: Median sternotomy. IMPRESSION: Right lower lobe opacities suspicious for pneumonia in the acute setting.
[2023-07-21 18:20] LABS: Basophils # 0.1 K/mm3 (0-0.2); Basophils % 0.4 % (0.1-2.0); Chloride 105 mmol/L (98-107); Eosinophils # 0.1 K/mm3 (0.0-0.4); Hematocrit 40.7 % (42.0-52.0); Hemoglobin 13.8 g/dL (14.1-18.0); Lymphocytes # 2.3 K/mm3 (0.7-4.5); Lymphocytes % 17.3 % (10-50); Mean Corpuscular Hemoglobin 31.1 pg (27.0-31.2); Mean Corpuscular Volume 91.5 fl (80-94); Mean Platelet Volume 7.5 fl (7.4-10.4); Monocytes # 0.6 K/mm3 (0.1-1.0); Monocytes % 4.5 % (1.7-9.3); Neutrophils # 9.9 K/mm3 (1.8-7.8); Neutrophils % 76.7 % (37.0-80.0); Platelet Count 258 K/mm3 (142-424); Potassium 3.8 mmoL/L (3.5-5.1); Red Blood Count 4.45 M/mm3 (4.60-6.20); Sodium 138 mmol/L (136-145)
[2023-07-21 18:23] LABS: Alanine Aminotransferase 21 U/L (12-78); Albumin Level 4.2 g/dl (3.5-5.0); Albumin/Globulin Ratio 1.2 (1.1-1.8); Alkaline Phosphatase 72 U/L (38-126); Anion Gap 12.8 mEq/L (5-15); Aspartate Amino Transferase 38 U/L (17-59); Bilirubin,Total 1.1 mg/dl (0.2-1.3); Blood Urea Nitrogen 22 mg/dl (9-20); Carbon Dioxide 24 mmol/L (22.0-30.0); Creatinine Clearance Estimated 51 mL/min (50-200); Estimated Glomerular Filt Rate 79 ml/min (>60); GFR (African American) 96 ML/MIN (>60); Globulin 3.5 g/dL (1.3-3.2); Total Protein,Serum 7.7 g/dl (6.3-8.2)
[2023-07-21 18:24] LABS: Calcium 8.5 mg/dl (8.4-10.2); Glucose 111 mg/dl (74-100)
[2023-07-21 18:30] LABS: INR 2.97 (0.9-1.1); Prothrombin Time 29.9 seconds (10.1-12.5)
--- NOTE | 2023-07-21 18:30 | HMH.EDGENADL ---
Discharge Plan Disposition Patient Disposition: Admitted Clinical Impressions Clinical Impression: Pneumonia Discharge ED Provider: Dontae Cohn General Adult HPI General Chief complaint: Shortness of Breath/Dyspnea Stated complaint: possible infection in blood Time Seen by Provider: 07/21/23 17:32 Mode of Arrival: Ambulatory Source of Information: Patient Limitations: No Limitations Description of Symptoms (Recalled from ER Triage Doc. by RN): pt presents to ED from pcp office for further eval. pt reports cough, coughing up blood, shortness of air. pt reports symptoms ongoing for the past 3 weeks. 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 Patient states that he was seen manage today and told that I have an infection in my blood that is very high. Was told to come immediately to the ER. Patient states that for the past 3 to 4 weeks he has been coughing which has been getting progressively worse. Initially productive of green sputum, now productive of dark red sputum. Denies nausea or vomiting, fevers or chills. Patient does not have abdominal pain, dysuria, hematuria, diarrhea or constipation. Related Data Home Medications Medication Instructions Recorded Confirmed aspirin 81 mg tablet,delayed 81 mg PO DAILY HEART HEALTH 04/09/22 07/21/23 release (Adult Low Dose Aspirin) furosemide 40 mg tablet (Lasix) 40 mg PO DAILYP PRN Edema 08/13/22 07/21/23 levothyroxine 137 mcg tablet See Rx Instructions .Route 01/24/23 07/21/23 .COMPLEX . simvastatin 40 mg tablet See Rx Instructions .Route 01/24/23 07/21/23 .COMPLEX . Previous Rx's Medication Instructions Recorded clopidogrel 75 mg tablet See Rx Instructions .Route 04/01/23 .COMPLEX . #90 tabs losartan 50 mg tablet 50 mg PO DAILY Hypertension #90 04/01/23 tabs omeprazole 20 mg capsule,delayed See Rx Instructions .Route 04/01/23 release .COMPLEX . #90 caps warfarin 3 mg tablet 3 mg PO MOTUWETHFRSA AFIB #60 tabs 04/01/23 metoprolol tartrate 50 mg tablet 50 mg PO BID Hypertension #180 tabs 06/02/23 potassium chloride 10 mEq 10 meq PO DAILY #30 caps 06/08/23 capsule,extended release clonazepam 1 mg tablet 1 mg PO BID Anxiety #60 tabs 07/01/23 albuterol sulfate 90 mcg/actuation 2 puff inhalation Q4-6H PRN 07/06/23 aerosol inhaler shortness of breath or wheezing #8.5 grams ondansetron HCl 4 mg tablet 4 mg PO Q8H PRN nausea and 07/21/23 vomiting #20 tabs Allergies Allergy/AdvReac Type Severity Reaction Status Date / Time codeine [CODEINE] Allergy Unknown Verified 07/21/23 08:59 [facility] Disclaimer: The information contained in this section may have been updated after the patient was seen, as this information can be updated by other users. Medical History Atrial flutter Bronchitis Coronary arteriosclerosis Dizziness Edema of lower extremity [place] current use of anticoagulant therapy STEMI (ST elevation myocardial infarction) Tremor Surgical History History of mechanical aortic valve replacement History of mitral valve replacement Stented coronary artery Family History Other No significant family history Social History (Updated 07/21/23 @ 20:28 by Rupinder Asencio RN) Smoking Status: Never smoker alcohol intake: never substance use type: denies use current occupational status: other Travel in the last 8 weeks: Inside the [facility] ROS Obtained: Yes All systems reviewed & no additional complaints except as documented Physical Exam General General appearance: alert and in no apparent distress
--- NOTE | 2023-07-21 19:14 | PC.NURSE ---
OBSERVATION ADMISSION TO 200 WITH DX OF PNA TO SERVICE OF HOSPITALIST.
[2023-07-21 19:42] VITALS: BP 143/70; PULSE 89; RESP 20; TEMP 37.1; O2SAT 97
--- NOTE | 2023-07-21 19:55 | EXP.HP ---
History of Present Illness *Admission Date: 07/21/23 *Reason for visit:: Right side chest pain *History of present illness: This is a 88-year-old male history of hypertension, hyperlipidemia, CAD status post [place] status post CABG and stenting currently on Plavix, mitral and aortic valve replacements with mechanical valve currently on Coumadin, who came to ER after been referred by PCP concerning of pneumonia. Patient stated that during his follow visit earlier today, he c/o right side chest pain, with increased congestion. WBC was elevated. He was told to go immediately to the ER. Patient states that for the past 3 to 4 weeks he has been coughing which has been getting progressively worse. Initially productive of green sputum, now productive of dark red sputum. Denies nausea or vomiting, fevers or chills. Patient does not have abdominal pain, dysuria, hematuria, diarrhea or constipation. Admitted for treatment and management. [facility] Disclaimer: The information contained in this section may have been updated after the patient was seen, as this information can be updated by other users. 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 STEMI (ST elevation myocardial infarction) Tremor Surgical History History of mechanical aortic valve replacement History of mitral valve replacement Stented coronary artery Family History Other No significant family history Social History (Updated 07/21/23 @ 20:28 by Rupinder Asencio RN) Smoking Status: Never smoker alcohol intake: never substance use type: denies use current occupational status: other Travel in the last 8 weeks: Inside the [place] Review of Systems Review of Systems Review of systems:: pertinent systems reviewed and negative unless documented below Meds Home Medications and Allergies Home Medications Medication Instructions Recorded Confirmed Type aspirin 81 mg tablet,delayed 81 mg PO DAILY Heart Health 04/09/22 07/22/23 History release (Adult Low Dose Aspirin) levothyroxine 137 mcg tablet 137 mcg PO DAILY Thyroid 01/24/23 07/22/23 History simvastatin 40 mg tablet 40 mg PO HS Cholesterol 01/24/23 07/22/23 History clonazepam 1 mg tablet 1 mg PO BID Anxiety #60 tabs 07/01/23 07/22/23 Rx albuterol sulfate 90 mcg/actuation 2 puff inhalation Q4-6H PRN 07/06/23 07/22/23 Rx aerosol inhaler shortness of breath or wheezing #8.5 grams clopidogrel 75 mg tablet 75 mg PO DAILY Platelet Inhibitor 07/22/23 07/22/23 History losartan 50 mg tablet 50 mg PO DAILY High Blood Pressure 07/22/23 07/22/23 History metoprolol tartrate 50 mg tablet 50 mg PO BID High Blood Pressure 07/22/23 07/22/23 History omeprazole 20 mg capsule,delayed 20 mg PO DAILY Acid Reflux 07/22/23 07/22/23 History release ondansetron HCl 4 mg tablet 4 mg PO Q8HP PRN nausea and 07/22/23 07/22/23 History vomiting warfarin 3 mg tablet 3 mg PO DAILY Blood thinner/Afib 07/22/23 07/22/23 History New Prescriptions to Start Prescriptions: Allergies Allergy/AdvReac Type Severity Reaction Status Date / Time codeine [CODEINE] Allergy Unknown Verified 07/21/23 08:59 Exam Data for Last 24 hours Vital signs and Labs for Last 24 Hours: Temp Pulse Resp BP Pulse Ox O2 Del Method 98.7 F 89 20 143/70 H 93 L Room Air 07/21/23 19:42 07/21/23 19:42 07/21/23 19:42 07/21/23 19:42 07/21/23 17:30 07/21/23 19:42 Laboratory Results - last 24 hr 07/21/23 18:05: WBC 13.0 H D, RBC 4.45 L, Hgb 13.8 L, Hct 40.7 L, MCV 91.5, MCH 31.1, MCHC 34.0, RDW 14.0, Plt Count 258, MPV 7.5, Neut % (Auto) 76.7, Lymph % (Auto) 17.3, Luna % (Auto) 4.5, Eos % (Auto) 1.0, Baso % (Auto) 0.4, Neut # (Auto) 9.9 H, Lymph
--- NOTE | 2023-07-21 19:57 | PC.NURSE ---
Patient arrived to floor via stretcher at 19:55.
[2023-07-21 20:54] VITALS: BP 134/61; PULSE 78; RESP 20; TEMP 36.9; O2SAT 96; BMI 25.4
[2023-07-22 04:00] VITALS: BP 117/56; PULSE 56; RESP 18; TEMP 36.7; O2SAT 95; BMI 25.7
[2023-07-22 04:01] LABS: Microscopic, Urine URINE MICROSCOPIC (MICROSCOPIC)
[2023-07-22 04:04] LABS: Appearance,Urine CLEAR (Clear); Bilirubin,Urine Negative (Negative); Blood, Urine Negative (Negative); Color,Urine YELLOW (Yellow); Glucose,Urine (UA) Negative (Negative); Ketones,Urine Negative (Negative); Leukocyte Esterase,Urine Negative (Negative); Nitrate,Urine Negative (Negative); PH,Urine 5.5 (5.0-8.5); Protein,Urine Negative (Negative)
[2023-07-22 04:21] LABS: RBC,Urine Occasional #/hpf (0-3); Squamous Epithelial Cell,Urine Occasional #/hpf (0-5); WBC,Urine Occasional #/hpf (0-3)
[2023-07-22 05:35] LABS: Coronavirus 19, PCR Not Detected (NotDetected); Influenza A, PCR Not Detected (NotDetected); Influenza B, PCR Not Detected (NotDetected)
--- NOTE | 2023-07-22 05:36 | PC.NURSE ---
pt A&Ox4, ambulates to and from bathroom with standby assistance, no complaints of SOB or chest pain since arriving to the floor. O2 sats >95% on RA. pt. states he had a good nights sleep and feels much better this morning. pt has a productive cough with bloody sputum, sample was sent to lab for culture. covid swab was sent to lab this am.
[2023-07-22 06:57] LABS: Basophils % 0.3 % (0.1-2.0); Eosinophils # 0.1 K/mm3 (0.0-0.4); Eosinophils % 0.9 % (0.1-12.0); Hematocrit 37.6 % (42.0-52.0); Hemoglobin 12.6 g/dL (14.1-18.0); Lymphocytes # 1.2 K/mm3 (0.7-4.5); Lymphocytes % 12.7 % (10-50); Mean Corpuscular HGB Conc 33.4 g/dL (31.8-35.4); Mean Corpuscular Hemoglobin 30.4 pg (27.0-31.2); Mean Corpuscular Volume 90.9 fl (80-94); Monocytes # 0.5 K/mm3 (0.1-1.0); Monocytes % 5.5 % (1.7-9.3); Neutrophils # 7.5 K/mm3 (1.8-7.8); Neutrophils % 80.6 % (37.0-80.0); Platelet Count 225 K/mm3 (142-424); Red Blood Count 4.13 M/mm3 (4.60-6.20); White Blood Count 9.3 K/mm3 (4.8-10.8)
[2023-07-22 07:10] LABS: Chloride 108 mmol/L (98-107); Sodium 137 mmol/L (136-145)
[2023-07-22 07:11] LABS: Potassium 3.9 mmoL/L (3.5-5.1)
[2023-07-22 07:13] LABS: Alanine Aminotransferase 16 U/L (12-78); Albumin Level 3.6 g/dl (3.5-5.0); Albumin/Globulin Ratio 1.2 (1.1-1.8); Alkaline Phosphatase 62 U/L (38-126); Anion Gap 7.9 mEq/L (5-15); Aspartate Amino Transferase 32 U/L (17-59); Bilirubin,Total 0.8 mg/dl (0.2-1.3); Blood Urea Nitrogen 18 mg/dl (9-20); Carbon Dioxide 25 mmol/L (22.0-30.0); Creatinine Clearance Estimated 50 mL/min (50-200); Estimated Glomerular Filt Rate 91 ml/min (>60); GFR (African American) 110 ML/MIN (>60); Globulin 3.1 g/dL (1.3-3.2); Total Protein,Serum 6.7 g/dl (6.3-8.2)
[2023-07-22 07:14] LABS: Calcium 7.9 mg/dl (8.4-10.2); Glucose 109 mg/dl (74-100)
[2023-07-22 08:00] VITALS: BP 132/76; PULSE 88; RESP 19; TEMP 36.6; O2SAT 95
--- NOTE | 2023-07-22 08:06 | HMH.PHAINT1 ---
Pharmacy Intervention Comments: MEDICATION RECONCILIATION COMPLETED ON PATIENT USING EXTERNAL FILL HISTORY FROM PHARMACY AND LIST FROM PCP OFFICE. -GOLDEN MADRIGAL, JO ANND
[2023-07-22 08:51] LABS: INR 2.53 (0.9-1.1); Prothrombin Time 25.7 seconds (10.1-12.5)
--- NOTE | 2023-07-22 12:18 | EXP.DC.SUM ---
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 Patient stated that during his follow visit earlier today, he c/o right side chest pain, with increased congestion. WBC was elevated. He was told to go immediately to the ER. Patient states that for the past 3 to 4 weeks he has been coughing which has been getting progressively worse. Initially productive of green sputum, now productive of dark red sputum. Denies nausea or vomiting, fevers or chills. Patient does not have abdominal pain, dysuria, hematuria, diarrhea or constipation. Admitted for treatment and management. 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 Initial ER work up confirmed moderate leukocytosis. CXR showed congested lower right base. Imaging reviewed. Radiology reported opacity. the rest of the work up unremarkable. After discussion with ER provider, and due to the high risk of clinically decompensation, including risk of sepsis, despite been on RA, decision for admission was made. Patient did well overnight. Feeling better by morning. Stable to discharge home with close follow-up with PCP given his antibiotics and chronic anticoagulation. Problems addressed as follows: - Right lower lobe Community acquired pneumonia: Admitted to hospital medicine. Treated with ceftriaxone. No oxygen requirement during admission. Patient has done well with improvement in symptoms. Hemoptysis more or less resolved. Suspect secondary to his extensive anticoagulation. Will transition to levofloxacin. Will need close monitoring of his INR given antibiotics. Given first dose on day of discharge. Will treat with 750 mg levofloxacin every 48 hours. Close follow-up with PCP to monitor INR closely. Patient stable on room air. Tolerating p.o. intake. -Afib, CAD. mitral and aortic valve replacment; chronic anticoagulation: INR 2.9 on admission. 2.5 the following morning. Will need close follow-up with his PCP to monitor INR. We will have patient follow-up tomorrow in the beginning of next week. Continue warfarin at current dose and Plavix. We will hold aspirin in the setting of scant hemoptysis. Hemoglobin remained stable during admission between 12 and 13. -HLD: Continue statin. Will hold aspirin at this time. Spent 30 minutes in discharge counseling, documentation, coordination with pharmacy, medication/chart review, and direct care with patient. Exam Data for Last 24 hours Vital signs and Labs for Last 24 Hours: Temp Pulse Resp BP Pulse Ox O2 Del Method 97.8 F 88 19 132/76 95 Room Air 07/22/23 08:00 07/22/23 08:00 07/22/23 08:00 07/22/23 08:00 07/22/23 08:00 07/22/23 08:00 Laboratory Results - last 24 hr 07/21/23 18:05: WBC 13.0 H D, RBC 4.45 L, Hgb 13.8 L, Hct 40.7 L, MCV 91.5, MCH 31.1, MCHC 34.0, RDW 14.0, Plt Count 258, MPV 7.5, Neut % (Auto) 76.7, Lymph % (Auto) 17.3, [facility] % (Auto) 4.5, Eos % (Auto) 1.0, Baso % (Auto) 0.4, Neut # (Auto) 9.9 H, Lymph # (Auto) 2.3, [facility] # (Auto) 0.6, Eos # (Auto) 0.1, Baso # (Auto) 0.1, PT 29.9 H, INR 2.97 H, Sodium 138, Potassium 3.8, Chloride 105, Carbon Dioxide 24, Anion Gap 12.8, BUN 22 H, Creatinine 0.90, Estimated Creat Clear 51, Estimated GFR 79, Est GFR ( Amer) 96, Glucose 111 H, Calcium 8.5, Total Bilirubin 1.1, AST 38, ALT 21, Alkaline Phosphatase 72, Total Protein 7.7, Albumin 4.2, Globulin 3.5 H, Albumin/Globulin Ratio 1.2 10
--- NOTE | 2023-07-26 15:46 | CARE MANAGER ---
Spoke with family. Patient with home health right now. Denies any questions.
== END 2023-07-22 15:14 | disposition home or self-care (01) ==
LOC: ER 17:46 → 2ND 20:01
PROVIDERS: Nurse Practitioner Family; Admitting Provider Internal Medicine Adolescent Medicine; Emergency Provider Emergency Medicine; PCP Family Medicine; Visit Provider Internal Medicine Adolescent Medicine
DX: J18.9 Pneumonia, unspecified organism (principal); I48.20 Chronic atrial fibrillation, unspecified; Z95.2 Presence of prosthetic heart valve; I25.110 Atherosclerotic heart disease of native coronary artery with unstable angina pectoris; E78.2 Mixed hyperlipidemia; R54 Age-related physical debility; Z79.01 Long term (current) use of anticoagulants; Z79.02 Long term (current) use of antithrombotics/antiplatelets; Z79.899 Other long term (current) drug therapy; Z95.1 Presence of aortocoronary bypass graft; Z95.5 Presence of coronary angioplasty implant and graft; I25.2 Old myocardial infarction; I10 Essential (primary) hypertension
CPT/HCPCS: 36415; 71045; 80053; 81001; 83690; 85007; 85025; 85610; 87040; 87070; 87205; 87636; 99285; G0378; J0456; J0696; J1956

== ENCOUNTER → 2023-09-01 23:00 | Outpatient (CLI) | payer MEDICARE, OTHER, SELFPAY ==
[2023-09-01 18:47] LABS: Amphetamine/Metha Screen,Urine Negative ng/ml (<1000)
[2023-09-01 18:48] LABS: Benzodiazepines Screen,Urine Negative ng/ml (<200)
[2023-09-01 18:49] LABS: Cannabinoid Screen,Urine Negative ng/ml (<50)
[2023-09-01 18:50] LABS: Cocaine Screen,Urine Negative ng/ml (<300)
[2023-09-01 18:51] LABS: Opiate Screen,Urine Negative ng/ml (<300)
[2023-09-01 18:52] LABS: Phencyclidine Screen,Urine Negative ng/ml (<25)
[2023-09-01 19:05] LABS: Methadone Screen,Urine Negative ng/ml (<300)
[2023-09-01 19:34] LABS: Barbiturates Screen,Urine Negative ng/ml (<200)
== END ==
PROVIDERS: PCP Family Medicine; Visit Provider Family Medicine
DX: Z79.899 Other long term (current) drug therapy (principal)
CPT/HCPCS: 80305

== ENCOUNTER 2023-09-23 10:35 | Emergency (ER) | payer MEDICARE, OTHER, SELFPAY ==
[2023-09-23 10:36] VITALS: BP 149/72; PULSE 70; RESP 18; TEMP 36.6; O2SAT 95; BMI 27.9
--- NOTE | 2023-09-23 11:07 | XR_ITS ---
FINAL REPORT CLINICAL HISTORY: cough pneumonia x 1 month ago FINDINGS: CHEST 2 VIEW 2 views of the chest were obtained. There is mild cardiomegaly. The patient is status post median sternotomy. Chronic changes are seen at the lung bases. The previously noted airspace opacity in the right lung base is less evident probably due to resolved pneumonia. There is no pneumothorax. There is no acute osseous abnormality. IMPRESSION: No acute cardiopulmonary abnormality Reviewed, Interpreted and Dictated by Russel Bunch MD Transcribed by Zoila Koenig Authenticated and [facility]
--- NOTE | 2023-09-23 11:15 | ED_ITS ---
Discharge Plan Disposition Patient Disposition: Home, Self-Care Condition: Good Prescriptions Prescriptions: No Action clonazepam 1 mg tablet 1 mg PO BID Qty: 60 5RF albuterol sulfate 90 mcg/actuation HFA aerosol inhaler 2 puff inhalation Q4-6H PRN (Reason: shortness of breath or wheezing) Qty: 8.5 0RF levothyroxine 137 mcg tablet 137 mcg PO DAILY simvastatin 40 mg tablet 40 mg PO HS losartan 50 mg tablet 50 mg PO DAILY clopidogrel 75 mg tablet 75 mg PO DAILY metoprolol tartrate 50 mg tablet 50 mg PO BID ondansetron HCl 4 mg tablet 4 mg PO Q8HP PRN (Reason: nausea and vomiting) omeprazole 20 mg capsule,delayed release(DR/EC) 20 mg PO DAILY warfarin 3 mg tablet 3 mg PO DAILY Referrals Follow up/Referrals: Dagoberto Pereyra MD [Primary Care Provider] - See instructions Activity Restrictions/Add. Instructions Additional Instructions/Restrictions: You were evaluated in the ER today for cough. You are positive for COVID-19, you are tolerating your symptoms well but if you begin to get worse, please im mediately return to the ER for further evaluation. I was not able to prescribe Paxlovid due to the other medications you take. Continue taking all of your other home medications as previously prescribed, make an appointment with your primary care physician for reevaluation in 1 to 2 days. Return to the ER with any new, worsening, or otherwise concerning symptoms. Clinical Impressions Clinical Impression: COVID-19 Discharge ED Provider: Duke Simental Adult HPI General Chief complaint: Upper Respiratory Infection Stated complaint: cough Time Seen by Provider: 09/23/23 10:44 Mode of Arrival: Ambulatory Source of Information: Patient Limitations: No Limitations Description of Symptoms (Recalled from ER Triage Doc. by RN): c/o cough with yellowish mucus for 2-3 days. Had a hx recent pna. History of Present Illness HPI narrative: This 88-year-old male with a history of recent severe pneumonia that became bacteremic presents to the ER with concerns of cough for the last 4 days. He also states he felt like he had a fever this morning. He denies congestion or sore throat. No vomiting or diarrhea. Patient states he has had a mildly productive cough. He does not feel short of breath but is worried that his pneumonia could get really bad again so he came to the ER for evaluation. Related Data Home Medications Medication Instructions Recorded Confirmed levothyroxine 137 mcg tablet 137 mcg PO DAILY Thyroid 01/24/23 09/01/23 simvastatin 40 mg tablet 40 mg PO HS Cholesterol 01/24/23 09/01/23 clopidogrel 75 mg tablet 75 mg PO DAILY Platelet Inhibitor 07/22/23 09/01/23 losartan 50 mg tablet 50 mg PO DAILY High Blood Pressure 07/22/23 09/01/23 metoprolol tartrate 50 mg tablet 50 mg PO BID High Blood Pressure 07/22/23 09/01/23 omeprazole 20 mg capsule,delayed 20 mg PO DAILY Acid Reflux 07/22/23 09/01/23 release ondansetron HCl 4 mg tablet 4 mg PO Q8HP PRN nausea and 07/22/23 09/01/23 vomiting warfarin 3 mg tablet 3 mg PO DAILY Blood thinner/Afib 07/22/23 09/01/23 Previous Rx's Medication Instructions Recorded clonazepam 1 mg tablet 1 mg PO BID Anxiety #60 tabs 07/01/23 albuterol sulfate 90 mcg/actuation 2 puff inhalation Q4-6H PRN 07/06/23 aerosol inhaler shortness of breath or wheezing #8.5 grams Allergies Allergy/AdvReac Type Severity Reaction Status Date / Time codeine [CODEINE] Allergy Unknown Verified 09/01/23 08:26 [facility] Disclaimer: The information contained in this section may have been updated after the patient was seen, as this information can be updated by other users. 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 current use of anticoagulant therapy STEMI (ST elevation myocardial infarction) Tremor Surgical History History of mechanical aortic valve replacement History of mitral valve replacement Stented coronary artery Family History Other No significant family history Social History Smoking Status: Never smoker alcohol intake: never substance use type: denies use current occupational status: other Travel in the last 8 weeks: Inside the [place] ROS Obtained: Yes All systems reviewed & no additional complaints except as documented Constitutional Constitutional: Denies chills, Reports fever(s), Denies headache(s) and Denies weakness Eyes Eyes: Denies change in vision ENT Ears, Nose, Mouth, and Throat: Denies dizziness, Denies headache(s), Denies nasal congestion and Denies sore throat Cardiovascular Cardiovascular: Denies chest pain, Denies dyspnea and Denies leg edema Respiratory Respiratory: Reports cough and Denies dyspnea Gastrointestinal Gastrointestingal: Denies constipation, diarrhea, nausea or vomiting Genitourinary Male Genitourinary: Denies difficulty urinating Musculoskeletal Musculoskeletal: Denies arthralgias, Denies myalgias, Denies numbness and Denies tingling Integumentary/Breasts Skin/Breast: Denies change in pigmentation Neurologic Neurologic: Denies dizziness, Denies headache(s), Denies numbness, Denies tingling and Denies weakness Physical Exam General General appearance: alert and in no apparent distress Head Head exam: atraumatic and normocephalic Eye Eye exam: Present PERRL and EOMI ENT ENT exam: Present mucous membranes moist Neck Neck exam: Present normal inspection and full ROM Chest Chest inspection: Present symmetric chest wall rise Respiratory Respiratory exam: Present normal lung sounds bilaterally; Absent respiratory distress, wheezes or stridor Cardiovascular Cardiovascular exam: Present regular rate and normal rhythm Abdominal Exam Abdominal exam: Present soft; Absent distention or tenderness Extremities Exam Extremities exam: Present full ROM Neurological Exam Neurological exam: Present alert and oriented X3; Absent motor sensory deficit Psychiatric Psychiatric exam: Present normal affect and normal mood Skin Skin exam: Present warm and dry Medical Decision Making [place] Inquiry Pt receiving controlled substance: No Vital Signs: 09/23/23 10:36 Temperature 97.8 F Temperature Source Oral Pulse Rate [Left Radial] 70 Respiratory Rate 18 Blood Pressure [Right Arm] 149/72 H Blood Pressure Mean [Right Arm] 97 Blood Pressure Source [Right Arm] Automatic Cuff Blood Pressure Position [Right Arm] Sitting 02 Sat by Pulse Oximetry 95 Oxygen Delivery Method Room Air Lab Data Lab Results 09/23/23 11:15: WBC 6.4, RBC 4.70, Hgb 13.9 L, Hct 41.9 L, MCV 89.2, MCH 29.6, MCHC 33.2, RDW 14.1, Plt Count 150, MPV 7.5, Neut % (Auto) 78.5, Lymph % (Auto) 12.4, [place] % (Auto) 7.0, Eos % (Auto) 1.5, Baso % (Auto) 0.6, Neut # (Auto) 5.1, Lymph # (Auto) 0.8, [place] # (Auto) 0.5, Eos # (Auto) 0.1, Baso # (Auto) 0.0, Sodium 139, Potassium 4.1, Chloride 108 H, Carbon Dioxide 25, Anion Gap 10.1, BUN 15, Creatinine 0.90, Estimated Creat Clear 54, Estimated GFR 79, Est GFR ( Amer) 96, Glucose 104 H, Calcium 8.1 L, Total Bilirubin 1.1, AST 33, ALT 19, Alkaline Phosphatase 66, Total Protein 7.0, Albumin 4.0, Globulin 3.0, Albumin/Globulin Ratio 1.3 09/23/23 11:30: SARS-CoV-2 (PCR) Detected A, Influenza A Untype (PCR) Not detected, Influenza Type B (PCR) Not detected 09/23/23 11:15 09/23/23 11:15 Orders (Tests/Meds): ED MEDICATIONS Generic Name Dose Route Start Last Admin Trade Name Freq PRN Reason Stop Dose Admin Sodium Chloride 10 ml 09/23/23 11:18 Sodium Chloride 0.9% 10ml Flush Syringe IV 10/23/23 11:17 NEEDED PRN Maintain IV Site ORDERS Category Date Time Status Chest XR 2 view (NOT portable) [XR chest 2V] Stat Exams 09/23/23 11:07 Completed Complete Blood Count Auto Diff Stat Lab 09/23/23 11:15 Completed Comprehensive Metabolic Panel Stat Lab 09/23/23 11:15 Completed Rapid PCR Covid and Flu A/B Stat Lab 09/23/23 11:30 Completed Medical Decision Narrative: In summary, this 88year old male presents to the emergency department today with cough, subjective fever. On initial evaluation patient is hemodynamically stable, afebrile, saturating 95% on room air, cardiopulmonary exam reassuring. Remainder of exam benign. Differential diagnosis includes but is not limited to pneumonia, viral syndrome including COVID, influenza, leukocytosis, anemia, electrolyte abnormality. Based on these concerns, I ordered CBC, CMP, viral testing, chest x-ray. No medications were administered in the ER. Labs personally reviewed demonstrate positive for COVID-19, negative for influenza, no leukocytosis, mild anemia with hemoglobin 13.9, nonactionable electrolytes, no signs of kidney dysfunction. XR personally interpreted demonstrates no acute lobar infiltrate, see radiology read for final interpretation. On reassessment patient remained stable. He is still saturating 94 to 96% on room air, breathing comfortably. I discussed the results with the patient. I offered Paxlovid, however it has interactions with multiple of his medications so does not appropriate to prescribe it at this time. He is on approximately day 4 of illness so anticipate he will begin to improve in the next few days. Patient and I spent significant time having a shared decision-making discussion about next steps. I offered him admission due to his advanced age and history of pneumonia, however he states he feels well enough that he would like to go home and will come back if he has any worsening symptoms. I believe this is a reasonable decision. Patient was given instructions on symptomatic management, follow up instructions, and strict return precautions for the emergency department. Patient indicated understanding and was discharged in stable condition. Critical Care Critical Care Time Critical Care Time: No
[2023-09-23 11:29] LABS: Chloride 108 mmol/L (98-107); Potassium 4.1 mmoL/L (3.5-5.1); Sodium 139 mmol/L (136-145)
[2023-09-23 11:31] LABS: Basophils % 0.6 % (0.1-2.0); Eosinophils # 0.1 K/mm3 (0.0-0.4); Eosinophils % 1.5 % (0.1-12.0); Hematocrit 41.9 % (42.0-52.0); Hemoglobin 13.9 g/dL (14.1-18.0); Lymphocytes # 0.8 K/mm3 (0.7-4.5); Lymphocytes % 12.4 % (10-50); Mean Corpuscular HGB Conc 33.2 g/dL (31.8-35.4); Mean Corpuscular Hemoglobin 29.6 pg (27.0-31.2); Mean Corpuscular Volume 89.2 fl (80-94); Mean Platelet Volume 7.5 fl (7.4-10.4); Monocytes # 0.5 K/mm3 (0.1-1.0); Neutrophils # 5.1 K/mm3 (1.8-7.8); Neutrophils % 78.5 % (37.0-80.0); Platelet Count 150 K/mm3 (142-424); Red Cell Distribution Width 14.1 % (11.5-17.5); White Blood Count 6.4 K/mm3 (4.8-10.8)
[2023-09-23 11:32] LABS: Alanine Aminotransferase 19 U/L (12-78); Albumin/Globulin Ratio 1.3 (1.1-1.8); Alkaline Phosphatase 66 U/L (38-126); Anion Gap 10.1 mEq/L (5-15); Aspartate Amino Transferase 33 U/L (17-59); Bilirubin,Total 1.1 mg/dl (0.2-1.3); Blood Urea Nitrogen 15 mg/dl (9-20); Carbon Dioxide 25 mmol/L (22.0-30.0); Creatinine Clearance Estimated 54 mL/min (50-200); Estimated Glomerular Filt Rate 79 ml/min (>60); GFR (African American) 96 ML/MIN (>60)
[2023-09-23 11:33] LABS: Calcium 8.1 mg/dl (8.4-10.2); Glucose 104 mg/dl (74-100)
[2023-09-23 11:36] LABS: Influenza A, PCR Not Detected (NotDetected); Influenza B, PCR Not Detected (NotDetected)
[2023-09-23 12:25] VITALS: BP 132/74; PULSE 63; O2SAT 97
[2023-09-23 12:28] LABS: Coronavirus 19, PCR Detected (NotDetected)
[2023-09-23 14:06] VITALS: BP 135/68; PULSE 64; RESP 20; TEMP 36.6; O2SAT 95
== END 2023-09-23 14:08 | disposition home or self-care (01) ==
PROVIDERS: Emergency Provider Emergency Medicine; PCP Family Medicine
DX: U07.1 COVID-19 (principal); R05.9 Cough, unspecified; I48.92 Unspecified atrial flutter; I25.10 Atherosclerotic heart disease of native coronary artery without angina pectoris; I25.2 Old myocardial infarction
CPT/HCPCS: 71046; 80053; 85025; 87636; 99285

== ENCOUNTER 2024-06-03 09:32 | Emergency (ER) | payer MEDICARE, OTHER, SELFPAY ==
[2024-06-03 09:32] VITALS: BP 180/88; PULSE 56; RESP 18; TEMP 36.6; O2SAT 94; BMI 24.7
--- NOTE | 2024-06-03 09:38 | CT_ITS ---
PROCEDURE INFORMATION: Exam: CT Head Without Contrast Exam date and time: 06/03/2024 10:20 AM Age: 88 years old Clinical indication: Injury or trauma; Fall; Additional info: Fall, struck head TECHNIQUE: Imaging protocol: Computed tomography of the head without contrast. Radiation optimization: All CT scans at this facility use at least one of these dose optimization techniques: automated exposure control; mA and/or kV adjustment per patient size (includes targeted exams where dose is matched to clinical indication); or iterative reconstruction. COMPARISON: CT HEAD/BRAIN WO CON 06/03/2024 10:20 AM FINDINGS: Brain: Patchy hypoattenuation in the periventricular and subcortical white matter, consistent with chronic small vessel ischemia. No CT evidence of acute ischemia. No acute hemorrhage. No mass effect or midline shift. Small curvilinear hyperdensity in the right frontal lobe appears cortically based and somewhat rounded (series 3, image 46 and series 1001, image 20). Cerebral ventricles: No ventriculomegaly. Paranasal sinuses: Visualized sinuses are unremarkable. No fluid levels. Mastoid air cells: Visualized mastoid air cells are well aerated. Orbital cavities: Bilateral lens extractions. Bones: Unremarkable. No acute fracture. Soft tissues: Unremarkable. IMPRESSION: 1. No definite acute intracranial abnormality. 2. Small curvilinear hyperdensity in the right frontal lobe appears cortically based and somewhat rounded. A small mass is a possibility, and MRI with and without contrast is recommended. THIS REPORT CONTAINS FINDINGS THAT MAY BE CRITICAL TO PATIENT CARE. The findings were verbally communicated via telephone conference with Dontae Cohn at 10:58 AM EDT on 06/03/2024. The findings were acknowledged and understood.
--- NOTE | 2024-06-03 09:38 | CT_ITS ---
PROCEDURE INFORMATION: Exam: CT Cervical Spine Without Contrast Exam date and time: 06/03/2024 10:22 AM Age: 88 years old Clinical indication: Injury or trauma; Fall; Additional info: Fall, struck head TECHNIQUE: Imaging protocol: Computed tomography of the cervical spine without contrast. Radiation optimization: All CT scans at this facility use at least one of these dose optimization techniques: automated exposure control; mA and/or kV adjustment per patient size (includes targeted exams where dose is matched to clinical indication); or iterative reconstruction. COMPARISON: CT HEAD/BRAIN WO CON 06/03/2024 10:20 AM FINDINGS: Bones: No acute fracture or malalignment. Mild degenerative disc disease throughout the cervical spine. Uncovertebral spurring and facet hypertrophy contribute to moderate to severe neural foraminal stenosis at C4-C5 on the left and C5-C6 on the left. No evidence of high-grade spinal canal stenosis. Lungs: Lung apices are normal. Soft tissues: Unremarkable. IMPRESSION: 1. No acute findings. 2. Degenerative changes as detailed above.
--- NOTE | 2024-06-03 09:39 | CT_ITS ---
PROCEDURE INFORMATION: Exam: CT Pelvis Without Contrast, Skeleton Exam date and time: 06/03/2024 10:25 AM Age: 88 years old Clinical indication: Injury or trauma; Fall; Blunt trauma (contusions or hematomas); Bilateral; Pelvic region; Additional info: Fall, pelvic pain TECHNIQUE: Imaging protocol: Computed tomography of the pelvis without contrast. Exam focused on the skeleton. Radiation optimization: All CT scans at this facility use at least one of these dose optimization techniques: automated exposure control; mA and/or kV adjustment per patient size (includes targeted exams where dose is matched to clinical indication); or iterative reconstruction. COMPARISON: CT ABDOMEN PELVIS W CON 01/27/2023 11:03 AM FINDINGS: Bones/joints: Unremarkable. No acute fracture. No dislocation. Soft tissues: Unremarkable. IMPRESSION: No acute findings.
--- NOTE | 2024-06-03 09:39 | CT_ITS ---
PROCEDURE INFORMATION: Exam: CTA Abdomen and Pelvis With Contrast Exam date and time: 06/03/2024 10:29 AM Age: 88 years old Clinical indication: Injury or trauma; Fall; Blunt trauma; Lower abdominal or back area; Left; Additional info: Fall, L sided lower rib and abd pain on warfarin TECHNIQUE: Imaging protocol: Computed tomographic angiography of the abdomen and pelvis with contrast. Exam focused on the arteries. 3D rendering (Not supervised by radiologist): MIP and/or 3D reconstructed images were created by the technologist. Radiation optimization: All CT scans at this facility use at least one of these dose optimization techniques: automated exposure control; mA and/or kV adjustment per patient size (includes targeted exams where dose is matched to clinical indication); or iterative reconstruction. Contrast material: ISOVUE; Contrast volume: 80 ml; Contrast route: INTRAVENOUS (IV); COMPARISON: CT BONY PELVIS 06/03/2024 10:25 AM FINDINGS: Aorta: Atherosclerotic change of the abdominal vasculature. Celiac trunk and mesenteric arteries: There is likely high-grade stenosis at the origin of the celiac trunk. Renal arteries: No occlusion or significant stenosis. Right iliac arteries: No occlusion or significant stenosis. Left iliac arteries: No occlusion or significant stenosis. Liver: No mass. Gallbladder and biliary ducts: Unremarkable. No calcified stones. No ductal dilation. Pancreas: Unremarkable. No mass. No ductal dilation. Spleen: Unremarkable. No splenomegaly. Adrenal glands: Unremarkable. No mass. Kidneys and ureters: Unremarkable. No solid mass. No hydronephrosis. Stomach and bowel: Unremarkable. No obstruction. No mucosal thickening. Appendix: No evidence of appendicitis. Intraperitoneal space: Unremarkable. No free air. No significant fluid collection. Lymph nodes: Unremarkable. No enlarged lymph nodes. Urinary bladder: Unremarkable. No mass. Reproductive: Unremarkable as visualized. Bones/joints: No acute fracture. Soft tissues: Unremarkable. IMPRESSION: No acute abdominal or pelvic abnormality is appreciated.
--- NOTE | 2024-06-03 09:39 | CT_ITS ---
PROCEDURE INFORMATION: Exam: CTA Chest With Contrast Exam date and time: 06/03/2024 10:29 AM Age: 88 years old Clinical indication: Injury or trauma; Fall; Blunt trauma (contusions or hematomas); Additional info: Fall, severe L sided rib pain TECHNIQUE: Imaging protocol: Computed tomographic angiography of the chest with contrast. Exam focused on the arteries. 3D rendering (Not supervised by radiologist): MIP and/or 3D reconstructed images were created by the technologist. Radiation optimization: All CT scans at this facility use at least one of these dose optimization techniques: automated exposure control; mA and/or kV adjustment per patient size (includes targeted exams where dose is matched to clinical indication); or iterative reconstruction. Contrast material: ISOVUE; Contrast volume: 80 ml; Contrast route: INTRAVENOUS (IV); COMPARISON: CR XR CHEST 2V 09/23/2023 11:07 AM FINDINGS: Pulmonary arteries: Normal. No pulmonary emboli. Aorta: Unremarkable. No aortic aneurysm. No aortic dissection. Lungs: Unremarkable. No consolidation. No masses. Pleural spaces: Unremarkable. No pneumothorax. No pleural effusion. Heart: Cardiomegaly. Lymph nodes: Unremarkable. No enlarged lymph nodes. Bones/joints: Unremarkable. No acute fracture. Soft tissues: Unremarkable. IMPRESSION: 1. No pulmonary embolism. No aortic aneurysm or dissection. 2. No infiltrate or pleural effusion. 3. Cardiomegaly
[2024-06-03 09:56] LABS: Basophils # 0.1 K/mm3 (0-0.2); Basophils % 0.6 % (0.1-2.0); Eosinophils # 0.1 K/mm3 (0.0-0.4); Eosinophils % 1.6 % (0.1-12.0); Hematocrit 46.6 % (42.0-52.0); Hemoglobin 14.6 g/dL (14.1-18.0); Lymphocytes # 1.7 K/mm3 (0.7-4.5); Lymphocytes % 20.5 % (10-50); Mean Corpuscular HGB Conc 31.4 g/dL (31.8-35.4); Mean Corpuscular Hemoglobin 29.8 pg (27.0-31.2); Mean Corpuscular Volume 95.1 fl (80-94); Mean Platelet Volume 8.6 fl (7.4-10.4); Monocytes # 0.5 K/mm3 (0.1-1.0); Monocytes % 5.5 % (1.7-9.3); Neutrophils # 5.8 K/mm3 (1.8-7.8); Neutrophils % 71.7 % (37.0-80.0); Platelet Count 203 K/mm3 (142-424); Red Cell Distribution Width 14.5 % (11.5-17.5); White Blood Count 8.1 K/mm3 (4.8-10.8)
[2024-06-03 09:59] LABS: Albumin Level 4.5 g/dl (3.5-5.0); Chloride 109 mmol/L (98-107); Sodium 138 mmol/L (136-145)
--- NOTE | 2024-06-03 09:59 | [facility].EDGENADL ---
Discharge Plan Disposition Patient Disposition: Home, Self-Care Chief Complaint: Fall Prescriptions Prescriptions: No Action albuterol sulfate 90 mcg/actuation HFA aerosol inhaler 2 puff inhalation Q4-6H PRN (Reason: shortness of breath or wheezing) Qty: 8.5 0RF hydrocodone-acetaminophen 5-325 mg tablet 1 tab PO DAILY PRN (Reason: pain) Qty: 30 0RF clonazepam 1 mg tablet 1 mg PO BID Qty: 60 5RF metoprolol tartrate 50 mg tablet 50 mg PO BID Qty: 180 3RF clopidogrel 75 mg tablet 75 mg PO DAILY Qty: 90 3RF losartan 50 mg tablet 50 mg PO DAILY Qty: 90 3RF warfarin 3 mg tablet 3 mg PO DAILY Qty: 60 10RF Rx Instructions: as directed simvastatin 40 mg tablet 40 mg PO HS Qty: 90 3RF furosemide 40 mg tablet 40 mg PO DAILY Qty: 90 3RF potassium chloride 10 mEq tablet extended release 10 meq PO DAILY Qty: 90 3RF omeprazole 20 mg capsule,delayed release(DR/EC) 20 mg PO DAILY Qty: 90 3RF levothyroxine 137 mcg tablet 137 mcg PO DAILY 90 Days Qty: 90 0RF Referrals Follow up/Referrals: Dagoberto Pereyra MD [Primary Care Provider] - See instructions Activity Restrictions/Add. Instructions Additional Instructions/Restrictions: Call your family doctor to establish care for this visit to the emergency department and schedule follow-up within 48 hours to ensure improvement. If you have any worsening of your condition or any other concerning signs or symptoms, return to the emergency department or your primary care doctor for further evaluation. Talk to your family doctor about MRI with and without contrast to discuss mass in right frontal lobe. Clinical Impressions Clinical Impression: Mass of right frontal lobe, CHI (closed head injury), Fall Print Language Print Language: Upper Sorbian Discharge ED Provider: Dontae Cohn General Adult HPI General Chief complaint: Fall Stated complaint: FALL Time Seen by Provider: 06/03/24 09:37 Mode of Arrival: EMS Source of Information: Patient and EMS Limitations: No Limitations Description of Symptoms (Recalled from ER Triage Doc. by RN): fell and hit the back of his head.on blood thinners History of Present Illness HPI narrative: Please note that above description of symptoms, in this electronic medical record under categorization of recalled from ER triage doctor by RN are reflective of an initial nursing assessment, however, is not reflective of my full history and physical exam that was personally taken and clarified. Consequentially, this preceding description of symptoms, which may include the patient's categorized chief complaint in the EMR, do not reflect my personal clinical impression, and the ultimate description of history of present illness and patient stated complaints should be deferred to this section of the note. Unless stated otherwise or congruent with this section of the note, additional signs, symptoms, or incongruence should be interpreted as inaccurate with my clinical impression. Related Data Previous Rx's ?Medication ?Instructions ?Recorded albuterol sulfate 90 mcg/actuation 2 puff inhalation Q4-6H PRN 07/06/23 aerosol inhaler shortness of breath or wheezing #8.5 grams clonazepam 1 mg tablet 1 mg PO BID Anxiety #60 tabs 01/06/24 clopidogrel 75 mg tablet 75 mg PO DAILY Platelet Inhibitor 01/06/24 #90 tabs furosemide 40 mg tablet 40 mg PO DAILY #90 tabs 01/06/24 losartan 50 mg tablet 50 mg PO DAILY High Blood Pressure 01/06/24 #90 tabs metoprolol tartrate 50 mg tablet 50 mg PO BID High Blood Pressure 01/06/24 #180 tabs potassium chloride 10 mEq 10 meq PO DAILY #90 tabs 01/06/24 tablet,extended release simvastatin 40 mg tablet 40 mg PO HS Cholesterol #90 tabs 01/06/24 warfarin 3 mg tablet 3 mg PO DAILY Blood thinner/Afib 01/06/24 #60 tabs omeprazole 20 mg capsule,delayed 20 mg PO DAILY Acid Reflux #90 caps 02/03/24 release hydrocodone 5 mg-acetaminophen 325 1 tab PO DAILY PRN pain #30 tabs 05/22/24 mg tablet levothyroxine 137 mcg tablet 137 mcg PO DAILY Thyroid 90 days 05/30/24 #90 tabs Allergies Allergy/AdvReac Type Severity Reaction Status Date / Time codeine [CODEINE] Allergy Unknown Verified 05/22/24 09:19 [facility] Disclaimer: The information contained in this section may have been updated after the patient was seen, as this information can be updated by other users. Medical History Tremor Bronchitis Falls Dizziness STEMI (ST elevation myocardial infarction) half-way current use of anticoagulant therapy Edema of lower extremity Atrial flutter Coronary arteriosclerosis Surgical History History of mitral valve replacement History of mechanical aortic valve replacement Stented coronary artery Family History Other No significant family history Social History Smoking Status: Never smoker alcohol intake: never substance use type: denies use current occupational status: other Travel in the last 8 weeks: Inside the [place] ROS Obtained: Yes All systems reviewed & no additional complaints except as documented Physical Exam General General appearance: alert and in no apparent distress Head Head exam: atraumatic and other (Superficial abrasion posterior occiput) Eye Eye exam: Present normal appearance, PERRL and EOMI Neck Neck exam: Present normal inspection, full ROM and trachea midline Respiratory Respiratory exam: Present normal lung sounds bilaterally; Absent respiratory distress, wheezes, stridor, accessory muscle use or prolonged expiratory phase Cardiovascular Cardiovascular exam: Present regular rate, normal rhythm and other (Pulses equal symmetric in upper and lower extremities) Abdominal Exam Abdominal exam: Present soft; Absent distention, tenderness, guarding or pulsatile mass Extremities Exam Extremities exam: Present other (per MDM); Absent edema Neurological Exam Neurological exam: Present alert, oriented X3, CN II-XII intact and normal gait (Reportedly per EMS and patient); Absent motor sensory deficit Skin Skin exam: Present warm and dry; Absent diaphoresis or erythema Medical Decision Making Medical Records Medical records reviewed: Yes I reviewed the patient's medical records. Pancho Inquiry Pt receiving controlled substance: No Pancho was queried for this patient: No Vital Signs: 06/03/24 09:32 Temperature 97.9 F Temperature Source Oral Pulse Rate [Right] 56 L Respiratory Rate 18 Blood Pressure [Right Arm] 180/88 H Blood Pressure Mean [Right Arm] 118 02 Sat by Pulse Oximetry 94 L Oxygen Delivery Method Room Air Lab Data Lab Results 06/03/24 09:45: WBC 8.1, RBC 4.90, Hgb 14.6, Hct 46.6, MCV 95.1 H, MCH 29.8, MCHC 31.4 L, RDW 14.5, Plt Count 203, MPV 8.6, Neut % (Auto) 71.7, Lymph % (Auto) 20.5, Vernon % (Auto) 5.5, Eos % (Auto) 1.6, Baso % (Auto) 0.6, Neut # (Auto) 5.8, Lymph # (Auto) 1.7, Vernon # (Auto) 0.5, Eos # (Auto) 0.1, Baso # (Auto) 0.1, PT 27.8 H, INR 2.74 H, APTT 43.2 H, Sodium 138, Potassium 5.0, Chloride 109 H, Carbon Dioxide 26, Anion Gap 8.0, BUN 17, Creatinine 1.00, Estimated Creat Clear 54, Estimated GFR 70, Est GFR ( Amer) 85, Glucose 109 H, Calcium 8.5, Total Bilirubin 1.3, AST 48, ALT 23, Alkaline Phosphatase 44, Total Protein 7.7, Albumin 4.5, Globulin 3.2, Albumin/Globulin Ratio 1.4 06/03/24 09:45 06/03/24 09:45 Orders (Tests/Meds): ED MEDICATIONS Discontinued Medications Generic Name Dose Route Start Last Admin Trade Name Tati PRN Reason Stop Dose Admin Acetaminophen 1,000 mg 06/03/24 10:01 06/03/24 10:41 Acetaminophen 1,000mg/100ml Vial IV 06/03/24 10:02 1,000 mg ONCE ONE Administration Iopamidol 80 ml 06/03/24 10:32 06/03/24 10:33 Iopamidol-370 (76%);100ml Bottle IV 06/03/24 10:33 80 ml ONCE ONE Administration Ketorolac Tromethamine 15 mg 06/03/24 10:01 06/03/24 10:40 Ketorolac 30mg/Ml Vial IV 06/03/24 10:02 15 mg ONCE ONE Administration Sodium Chloride 10 ml 06/03/24 10:32 06/03/24 10:33 Sodium Chloride 0.9% 10ml Syr (Rad Only) IV 06/03/24 10:33 10 ml ONCE ONE Administration Sodium Chloride 50 ml 06/03/24 10:32 06/03/24 10:32 0.9 % Sodium Chloride 50 Ml Vial IV 06/03/24 10:33 50 ml ONCE ONE Administration ORDERS Category Date Time Status CT angio abdomen pelvis Stat Cat Scan 06/03/24 09:[address] angio chest - dissection Stat Cat Scan 06/03/24 09:[address] bony pelvis Stat Cat Scan 06/03/24 09:[address] cervical spine wo con Stat Cat Scan 06/03/24 09:[address] head/brain wo con Stat Cat Scan 06/03/24 09:38 Completed CBC w/Auto Diff [Complete Blood Count Auto Diff] Stat Lab 06/03/24 09:45 Completed CMP [Comprehensive Metabolic Panel] Stat Lab 06/03/24 09:45 Completed PT INR [Prothrombin Time INR] Stat Lab 06/03/24 09:45 Completed PTT [Activated Partial Thrombo Time] Stat Lab 06/03/24 09:45 Completed Medical Decision Narrative: 88-year-old male history of mitral and aortic valve mechanical replacements on warfarin, hypertension, hyperlipidemia, A-fib presenting with fall. Patient states that he tripped over some boards just prior to arrival, fell backward, hit the back of his head. No loss of consciousness. Was able to get up and ambulate without issue. Called EMS after talking to family urging him to come to the emergency department. EMS arrived, brought patient to the emergency department. On arrival, patient was placed in cervical collar. Currently has no complaints other than feeling sore, in his left ribs. No shortness of breath, nausea, vomiting, vision changes, numbness or weakness on one side or the other, headache, neck pain, back pain, or any other concerns. History was obtained via conversation with patient and EMS. On arrival, patient hemodynamically stable, alert, oriented x4, appropriate, GCS 15, moving all extremities spontaneously, pupils equal and reactive to light. Full physical exam performed and significant for very well-appearing male who is in no acute distress. Pupils are 2 mm and reactive bilaterally, no C-spine tenderness prior to c-collar placement. Superficial abrasion on occiput, superficial abrasions on the right upper extremity, but no tenderness or evidence of deformity. Cardiopulmonary exam within normal notes. Secondary survey completely normal. Pelvis is stable. Differential includes intracranial bleed, critical cervical spine injury, minor MSK trauma, concussion, among others. Patient placed on continuous cardiac monitoring and continuous pulse ox with initial blood pressure 188/80, heart rate 56, saturation 94% on room air. Patient was given Toradol and acetaminophen for symptomatic management and correction of underlying abnormalities. Workup independently interpreted and significant for nonactionable CBC. Patient's INR today is 2.74 within therapeutic window. PTT elevated at 43. Chemistry nonactionable.. On independent interpretation of imaging, no acute intracranial hemorrhage. No critical C-spine injury. See radiology read for full review of final results. Given patient presentation, workup, history, this most likely represents minor soft tissue injury in the setting of fall. Incidentally noted right frontal lobe mass, this was relayed to patient and family, recommended they follow-up for outpatient MRI with and without contrast. They voiced understanding. Because patient at baseline without signs or symptoms of clinical decompensation, deemed appropriate for discharge. Results were relayed to patient who voiced understanding and were agreeable to outpatient management and follow up. I discussed my clinical impression with patient and answered all questions. At this time, the evidence for any other entities in the differential is insufficient to warrant any further testing or ED observation. This was explained as well. Advisory was given that persistent or worsening symptoms require further evaluation. I confirmed the understanding of this discussion. Interface Analyst disclaimer Much of this encounter note is an electronic advanced manufacturing technician spoken language to printed text. Electronic advanced manufacturing technician of the spoken language may permit errors. Although I have reviewed the note, some errors may still exist. Critical Care Critical Care Time Critical Care Time: No
[2024-06-03 10:02] LABS: Alanine Aminotransferase 23 U/L (12-78); Aspartate Amino Transferase 48 U/L (17-59); Blood Urea Nitrogen 17 mg/dl (9-20); Carbon Dioxide 26 mmol/L (22.0-30.0); Creatinine Clearance Estimated 54 mL/min (50-200); Estimated Glomerular Filt Rate 70 ml/min (>60); GFR (African American) 85 ML/MIN (>60)
[2024-06-03 10:03] LABS: Albumin/Globulin Ratio 1.4 (1.1-1.8); Alkaline Phosphatase 44 U/L (38-126); Bilirubin,Total 1.3 mg/dl (0.2-1.3); Calcium 8.5 mg/dl (8.4-10.2); Globulin 3.2 g/dL (1.3-3.2); Glucose 109 mg/dl (74-100); Total Protein,Serum 7.7 g/dl (6.3-8.2)
[2024-06-03 10:11] LABS: Activated Partial Thrombo Time 43.2 seconds (22.8-30.6); INR 2.74 (0.9-1.1); Prothrombin Time 27.8 seconds (10.1-12.5)
[2024-06-03] MEDS: 0.9 % SODIUM CHLORIDE 50 ML VIAL IV (10:32)
[2024-06-03] MEDS: SODIUM CHLORIDE 0.9% 10ML SYR (RAD ONLY) 10 ML IV (10:33)
[2024-06-03] MEDS: IOPAMIDOL-370 (76%);100ML BOTTLE 80 ML IV (10:33)
[2024-06-03] MEDS: KETOROLAC 30MG/ML VIAL 15 MG IV (10:40)
[2024-06-03] MEDS: ACETAMINOPHEN 1,000MG/100ML VIAL 1000 MG IV (10:41)
[2024-06-03 11:50] VITALS: BP 180/88; PULSE 56; RESP 18; TEMP 36.6; O2SAT 94
== END 2024-06-03 11:51 | disposition home or self-care (01) ==
PROVIDERS: Emergency Provider Emergency Medicine; PCP Family Medicine
DX: S09.8XXA Other specified injuries of head, initial encounter (principal); G93.89 Other specified disorders of brain; I48.92 Unspecified atrial flutter; I25.10 Atherosclerotic heart disease of native coronary artery without angina pectoris; I25.2 Old myocardial infarction; Z79.01 Long term (current) use of anticoagulants; I10 Essential (primary) hypertension; E78.5 Hyperlipidemia, unspecified; W01.0XXA Fall on same level from slipping, tripping and stumbling without subsequent striking against object, initial encounter; Y92.9 Unspecified place or not applicable
CPT/HCPCS: 70450; 71275; 72125; 72192; 74174; 80053; 85025; 85610; 85730; 96374; 96375; 99285; J0131; J1885; Q9967